=== PATIENT | male | born 1950 | race Caucasian/White ===

== ENCOUNTER 2017-05-09 05:50 | Inpatient (IN) | payer BC ==
[~2017-05-09] VITALS: Ht 167.6 cm; Wt 52.2 kg
[~2017-05-09 05:50] MED LIST: ALBU2.5V14 NEB; ALPR0.5T PO; ALPR0.5T6 PO; ASCO500T2 PO; ASPI325T8 PO; DOCU100C28 PO; HYDR-2766 PO; HYDR-963 PO; LOSA100T6 PO; PRED-220 PO; PRED20TA PO
--- NOTE | 2017-05-09 06:09 | PHYS DOC ---
Past Medical History Past Medical History: COPD, DVT, Hypertension Additional Past Medical Histor: scleraderma, Raynauds Past Surgical History: No Surgical History Additional Past Surgical Histo: CARDIAC CATH 04/2016 Alcohol Use: None Drug Use: None Adult General Chief Complaint Chief Complaint: SKIN PROBLEM HPI HPI Patient is a 67 year old male who presents with worsening left hand pain and redness. He was treated by Dr Phillips outpatient and just finished his antibiotics (Clindamycin) yesterday. He has been having increased pain and swelling and he hasn't been able to sleep because of the hand pain. He feels "sick" and has been very tired. No known fever. No vomiting. Review of Systems Review of Systems Constitutional: Denies fever or chills; POS fatigue Eyes: Denies change in visual acuity, redness, or eye pain HENT: Denies nasal congestion or sore throat Respiratory: Denies cough or shortness of breath Cardiovascular: No chest pain GI: Denies abdominal pain, nausea, vomiting, bloody stools or diarrhea : Denies dysuria or hematuria Musculoskeletal: Denies back pain or joint pain Integument: Left hand with swelling and erythema and warmth over the dorsum. NVI distally. Neurologic: Denies headache, focal weakness or sensory changes All other systems were reviewed and found to be within normal limits, except as documented in this note. Current Medications Current Medications Current Medications Medications (Trade) Dose Ordered Sig/Maximo Start Time Stop Time Status Last Admin Dose Admin Fentanyl Citrate (Fentanyl 2ml Vial) 50 mcg PRN Q4HRS PRN 05/09/17 06:15 05/10/17 06:14 Ondansetron HCl (Zofran) 4 mg PRN Q8HRS PRN 05/09/17 06:15 05/10/17 06:14 Allergies Allergies Allergies Coded Allergies Type Severity Reaction Last Updated Verified Iodinated Contrast- Oral and IV Dye Allergy Intermediate 02/26/17 Yes Physical Exam Physical Exam Constitutional: Well developed, well nourished, no acute distress, non-toxic appearance. HENT: Normocephalic, atraumatic, bilateral external ears normal, oropharynx moist, no oral exudates, nose normal. Eyes: PERRLA, EOMI, conjunctiva normal, no discharge. Neck: Normal range of motion, no tenderness, supple, no stridor. Cardiovascular:Heart rate regular rhythm, no murmur Lungs & Thorax: Bilateral breath sounds clear to auscultation Abdomen: Bowel sounds normal, soft, no tenderness, no masses, no pulsatile masses. Skin: Warm, dry, POS erythema to left hand. Back: No tenderness, no CVA tenderness. Extremities: Left hand: erythema and swelling and warmth to dorsum of left hand. Healing wound on left 5th MCP (denies human bite). NVI distally Neurologic: Alert and oriented X 3, normal motor function, normal sensory function, no focal deficits noted. Psychologic: Affect normal, judgement normal, mood normal. Current Patient Data Vital Signs Vital Signs Date Time Temp Pulse Resp B/P (MAP) Pulse Ox O2 Delivery O2 Flow Rate FiO2 05/09/17 06:00 99.3 88 18 123/68 (86) 98 Room Air 99.3 Lab Values Laboratory Tests Test 05/09/17 06:10 White Blood Count 15.1 x10^3/uL (4.0-11.0) H Red Blood Count 3.88 x10^6/uL (4.30-5.70) L Hemoglobin 11.8 g/dL (13.0-17.5) L Hematocrit 35.7 % (39.0-53.0) L Mean Corpuscular Volume 92 fL (79-100) Mean Corpuscular Hemoglobin 31 pg (25-35) Mean Corpuscular Hemoglobin Concent 33 g/dL (31-37) Red Cell Distribution Width 14.2 % (11.5-14.5) Platelet Count 343 x10^3/uL (140-400) Neutrophils (%) (Auto) 85 % (31-73) H Lymphocytes (%) (Auto) 7 % (24-48) L Monocytes (%) (Auto) 6 % (0-9) Eosinophils (%) (Auto) 1 % (0-3) Basophils (%) (Auto) 1 % (0-3) Neutrophils # (Auto) 12.8 x10^3uL (1.8-7.7) H Lymphocytes # (Auto) 1.1 x10^3/uL (1.0-4.8) Monocytes # (Auto) 0.9 x10^3/uL (0.0-1.1) Eosinophils # (Auto) 0.1 x10^3/uL (0.0-0.7) Basophils # (Auto) 0.1 x10^3/uL (0.0-0.2) Platelet Estimate Pending Sodium Level 131 mmol/L (136-145) L Potassium Level 4.0 mmol/L (3.5-5.1) Chloride Level 95 mmol/L (98-107) L Carbon Dioxide Level 29 mmol/L (21-32) Anion Gap 7 (6-14) Blood Urea Nitrogen 20 mg/dL (8-26) Creatinine 0.9 mg/dL (0.7-1.3) Estimated GFR (Cockcroft-Gault) 83.7 BUN/Creatinine Ratio 22 (6-20) H Glucose Level 92 mg/dL (70-99) Lactic Acid Level 0.9 mmol/L (0.4-2.0) Calcium Level 9.4 mg/dL (8.5-10.1) Total Bilirubin 0.5 mg/dL (0.2-1.0) Aspartate Amino Transferase (AST) 30 U/L (15-37) Alanine Aminotransferase (ALT) 31 U/L (16-63) Alkaline Phosphatase 70 U/L (46-116) C-Reactive Protein, Quantitative 120.1 mg/L (0-3.3) H Total Protein 6.7 g/dL (6.4-8.2) Albumin 3.1 g/dL (3.4-5.0) L Albumin/Globulin Ratio 0.9 (1.0-1.7) L Laboratory Tests 05/09/17 06:10 Laboratory Tests 05/09/17 06:10 Course & Med Decision Making Course & Med Decision Making Evaluated patient. He has failed outpatient management. He has been compliant with his medications. Spoke with Dr Phillips; admit; IV Vancomycin (blood culture obtained). Lactic acid normal. I have spoken with the patient and/or caregivers. I have explained the patient' s condition, diagnosis and treatment plan based on the information available to me at this time. I have answered the patient's and/or caregiver's questions and addressed any concerns. The patient and/or caregivers have as good an understanding of the patient's diagnosis, condition and treatment plan as can be expected at this point. The patient has been stabilized within the capability of the emergency department. The patient will be transported for further care and management or will be moved to an observation or inpatient service. I have communicated with the staff or medical practitioner taking over this patient's care. I have assessed this patient clinically and believe that their condition requires admission to the hospital. After consulting the admitting physician about this case, they have asked that I admit this patient to their service as an inpatient based on the clinical presentation and my impression. Dragon Disclaimer Dragon Disclaimer This electronic medical record was generated, in whole or in part, using a voice recognition dictation system. Departure Departure Impression: Primary Impression: Cellulitis of left hand Additional Impression: Failure of outpatient treatment Disposition: ADMITTED INPATIENT Admitting Physician: Checo Phillips Condition: STABLE Referrals: CHECO PHILLIPS MD (PCP) Problem Qualifiers JOSE ALBERTO LOMBARDI MD May 09, 2017 06:09
[2017-05-09] MEDS ORDERED: ONDANSETRON PF 4 MG/2 ML VIAL. IV PRN (06:15)
[2017-05-09] MEDS ORDERED: fentaNYL PF VIAL 100 MCG/2 ML VIAL IV PRN ×2 (06:15)
[2017-05-09 06:29] LABS: BASO # 0.1 x10^3/uL (0.0-0.2); BASO % 1 % (0-3); EOS % 1 % (0-3); HEMATOCRIT 35.7 % (39.0-53.0); HEMOGLOBIN 11.8 g/dL (13.0-17.5); LYMPH # 1.1 x10^3/uL (1.0-4.8); LYMPH % 7 % (24-48); MEAN CORPUSCULAR HEMOGLOBIN 31 pg (25-35); MEAN CORPUSCULAR HGB CONC 33 g/dL (31-37); MEAN CORPUSCULAR VOLUME 92 fL (79-100); MONO % 6 % (0-9); NEUT % 85 % (31-73); PLATELET COUNT 343 x10^3/uL (140-400); RED BLOOD COUNT 3.88 x10^6/uL (4.30-5.70); RED CELL DISTRIBUTION WIDTH 14.2 % (11.5-14.5); WHITE BLOOD COUNT 15.1 x10^3/uL (4.0-11.0)
[2017-05-09] MEDS ORDERED: ONDANSETRON PF 4 MG/2 ML VIAL. IV ONE (06:30)
[2017-05-09] MEDS ORDERED: IV NORMAL SALINE 1000ML BAG 1,000 ML IV SCH (06:30)
[2017-05-09 06:36] LABS: CALCIUM 9.4 mg/dL (8.5-10.1); CREATININE 0.9 mg/dL (0.7-1.3); GFR 83.7
[2017-05-09 06:42] LABS: ALBUMIN 3.1 g/dL (3.4-5.0); ALBUMIN/GLOBULIN RATIO 0.9 (1.0-1.7); C-REACTIVE PROTEIN 120.1 mg/L (0-3.3); TOTAL BILIRUBIN 0.5 mg/dL (0.2-1.0); TOTAL PROTEIN 6.7 g/dL (6.4-8.2)
[2017-05-09] MEDS: VANCOMYCIN PER PHARMACY MC PRN (06:50)
[2017-05-09 07:00] VITALS: BP 108/67
[2017-05-09] MEDS ORDERED: VANCOMYCIN 1.25 GM in IV DEXTROSE 5% 250 ML IV ONE (07:00)
[2017-05-09] MEDS ORDERED: HYDROcodone/APAP 10/325 1 TAB TABLET PO PRN ×2 (08:30→09:15)
[2017-05-09] MEDS ORDERED: ALBUTEROL SULFATE 2.5 MG/3 ML NEBU. NEB PRN (08:30)
[2017-05-09] MEDS: ASCORBIC ACID 500 MG TABLET PO SCH (09:00)
[2017-05-09] MEDS ORDERED: NON FORMULARY ITEM (Albuterol Sulfate (Albuterol Sulfate Conc Neb Soln) 1 VIAL) NEB SCH (09:00)
[2017-05-09] MEDS ORDERED: ALPRAZolam 0.5 MG TABLET PO SCH (09:00)
[2017-05-09] MEDS ORDERED: ALBUTEROL SULFATE 2.5 MG/3 ML NEBU. NEB SCH (09:00)
[2017-05-09] MEDS: predniSONE 20 MG TABLET PO SCH (09:00)
[2017-05-09] MEDS: LOSARTAN POTASSIUM 50 MG TABLET. PO SCH (09:00)
[2017-05-09] MEDS: DOCUSATE SODIUM 100 MG CAPSULE. PO SCH ×2 (09:00→16:03)
[2017-05-09 10:11] LABS: PLT ESTIMATE ADEQUATE (ADEQUATE)
--- NOTE | 2017-05-09 10:41 | PDOC ---
Provider Note Provider Note [id number] JOHNATHAN CANDELARIA MD May 09, 2017 10:41
--- NOTE | 2017-05-09 10:50 | HP ---
ADMIT DATE: 05/09/2017 CHIEF COMPLAINT: Infected left hand. HISTORY OF PRESENT ILLNESS: A 67-year-old with end-stage chronic obstructive pulmonary disease and chronic pain disorder, was seen in the office about 2 weeks ago with some cellulitis of the left dorsal wrist. This appeared to have stemmed from an open wound on the dorsal aspect of the fifth metacarpophalangeal joint with no sign of secondary abscess or osteomyelitis present. He took a week of clindamycin and initially improved, but apparently pain has returned with diffuse redness and swelling and he was admitted with IV vancomycin and further observation. PAST MEDICAL HISTORY: Well documented in old records. MEDICATIONS: He takes hydrocodone about 60 mg a day for chronic pain. He is on prednisone for end-stage chronic obstructive pulmonary disease. ALLERGIES: No drug allergies. IMMUNIZATION STATUS: Uncertain at this time. SOCIAL HISTORY: Still smoking. Retired. Physically inactive. Nondrinker. FAMILY HISTORY: Unremarkable. REVIEW OF SYSTEMS: No other complaints. OBJECTIVE: ENT: Generally unremarkable. NECK: No carotid bruits, nodes or masses. LUNGS: Decreased breath sounds. No wheezing or tachypnea. CARDIOVASCULAR: Regular rate. No tachycardia or murmur. ABDOMEN: Benign. EXTREMITIES: Left dorsal and ventral hand and ventral wrist are diffusely mildly red and swollen. There is no evidence of abscess. There is a minor open wound over the dorsal aspect of the fifth metacarpophalangeal joint with no expressible pus or discernible discrete bone pain. Neurovascular appears to be intact. NEUROLOGIC: Physiologic and nonfocal. ASSESSMENT: Recurrent cellulitis of the left hand and arm, suspect from soft tissue wound on the dorsal hand. He also has steroid dependent chronic obstructive pulmonary disease and chronic nonmalignant pain disorder. PLAN: Continue vancomycin and add oxycodone for pain support. X-ray of the hand to look for any evidence of osteomyelitis. JOHNATHAN CANDELARIA MD DR: CRISTHIAN/sanjeev JOB#: [id number] / [id number]
[2017-05-09 11:00] VITALS: BP 100/54
[2017-05-09] MEDS: HYDROcodone/APAP 10/325 1 TAB TABLET PO SCH ×3 (11:30→20:27)
[2017-05-09] MEDS: IPRATRPIUM/ALBUTEROL 0.5/2.5MG 3 ML NEBU. NEB SCH ×3 (12:55→20:02)
--- NOTE | 2017-05-09 14:10 | RAD ---
HAND LEFT 2V History:cellulitis, pain in the left hand Comparison: None Findings:2 views of the left hand are submitted. There has been amputation beyond the proximal one third shaft of the fifth middle phalanx, adjacent small corticated bone fragment. No acute fracture or aggressive bone destruction is identified. No radiopaque foreign body is identified. There are ossific bodies about the carpus. Impression: 1.There has been amputation beyond the proximal aspect of the middle fifth phalanx. No aggressive bone destruction is identified. 2. 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
[2017-05-09 15:00] VITALS: BP 108/56
[2017-05-09] MEDS ORDERED: OMEP40CA5 PO (17:12)
[2017-05-09] MEDS: PANTOPRAZOLE 40 MG TABLET.DR. PO SCH (17:20)
[2017-05-09] MEDS: oxyCODONE/APAP 5/325 1 TAB TABLET PO PRN (17:22)
[2017-05-09 19:00] VITALS: BP 117/67
[2017-05-09] MEDS: LACTOBACILLUS RHAMNOSUS GG 1 CAPSULE. PO SCH (20:27)
[2017-05-09] MEDS: ALPRAZolam 0.5 MG TABLET PO PRN (20:27)
[2017-05-09 23:00] VITALS: BP 93/53
[2017-05-10] VITALS (7 sets, daily range): BP systolic 104–150; BP diastolic 51–81
[2017-05-10] MEDS: HYDROcodone/APAP 10/325 1 TAB TABLET PO SCH ×7 (00:59→23:55)
[2017-05-10] MEDS: oxyCODONE/APAP 5/325 1 TAB TABLET PO PRN ×4 (05:43→21:35)
[2017-05-10] MEDS: PANTOPRAZOLE 40 MG TABLET.DR. PO SCH (07:25)
[2017-05-10] MEDS: VANCOMYCIN 750 MG in IV DEXTROSE 5% 250 ML IV SCH (07:25)
[2017-05-10] MEDS: IPRATRPIUM/ALBUTEROL 0.5/2.5MG 3 ML NEBU. NEB SCH ×2 (08:23→13:01)
[2017-05-10] MEDS ORDERED: ALPRAZolam 0.5 MG TABLET PO SCH (09:30)
--- NOTE | 2017-05-10 09:32 | PDOC ---
Provider Note Provider Note afeb, vss- xr neg re osteo- redness of hand less dorsally, wound over dorsal 5th mcp is closed and nt- cont vaco, add tdap JOHNATHAN CANDELARIA MD May 10, 2017 09:32
[2017-05-10] MEDS ORDERED: DIPHTH,PERTUSS(ACELL),TET TOX 0.5 ML DISP.SYRIN. VAX IM ONE (10:00)
[2017-05-10] MEDS: LOSARTAN POTASSIUM 50 MG TABLET. PO SCH (10:40)
[2017-05-10] MEDS: ASCORBIC ACID 500 MG TABLET PO SCH (10:40)
[2017-05-10] MEDS: predniSONE 20 MG TABLET PO SCH (10:41)
[2017-05-10] MEDS: LACTOBACILLUS RHAMNOSUS GG 1 CAPSULE. PO SCH ×2 (10:41→21:07)
[2017-05-10] MEDS: VANCOMYCIN PER PHARMACY MC PRN (13:58)
[2017-05-10] MEDS: ALPRAZolam 0.5 MG TABLET PO PRN (15:28)
[2017-05-11 03:00] VITALS: BP 120/64
[2017-05-11] MEDS: oxyCODONE/APAP 5/325 1 TAB TABLET PO PRN ×3 (03:13→17:41)
[2017-05-11] MEDS: HYDROcodone/APAP 10/325 1 TAB TABLET PO SCH ×5 (04:12→19:56)
[2017-05-11] MEDS: VANCOMYCIN 750 MG in IV DEXTROSE 5% 250 ML IV SCH ×2 (07:06→17:43)
[2017-05-11] MEDS: VANCOMYCIN PER PHARMACY MC PRN (07:19)
[2017-05-11] MEDS: IPRATRPIUM/ALBUTEROL 0.5/2.5MG 3 ML NEBU. NEB SCH ×3 (07:50→21:46)
[2017-05-11] MEDS: DOCUSATE SODIUM 100 MG CAPSULE. PO SCH (08:12)
[2017-05-11] MEDS: predniSONE 20 MG TABLET PO SCH (08:13)
[2017-05-11] MEDS: ASCORBIC ACID 500 MG TABLET PO SCH (08:13)
[2017-05-11] MEDS: PANTOPRAZOLE 40 MG TABLET.DR. PO SCH (08:14)
[2017-05-11] MEDS: LOSARTAN POTASSIUM 50 MG TABLET. PO SCH (08:14)
[2017-05-11] MEDS: LACTOBACILLUS RHAMNOSUS GG 1 CAPSULE. PO SCH ×2 (08:14→19:56)
[2017-05-11 08:37] VITALS: BP 136/77
--- NOTE | 2017-05-11 10:38 | PDOC ---
Provider Note Provider Note L hand less swollen and red, no new sxs, no temp- labs ok, now vanco q 12 re trough level- cont same , maybe po in am JOHNATHAN CANDELARIA MD May 11, 2017 10:38
[2017-05-11 11:24] VITALS: BP 114/69
[2017-05-11 16:00] VITALS: BP 121/66
[2017-05-11 19:00] VITALS: BP 140/75
[2017-05-11] MEDS: ALPRAZolam 0.5 MG TABLET PO PRN (19:22)
[2017-05-11 23:19] VITALS: BP 140/87
[2017-05-12] MEDS: HYDROcodone/APAP 10/325 1 TAB TABLET PO SCH ×3 (00:05→08:11)
[2017-05-12] MEDS: oxyCODONE/APAP 5/325 1 TAB TABLET PO PRN (03:13)
[2017-05-12] MEDS: ALPRAZolam 0.5 MG TABLET PO PRN (03:15)
[2017-05-12] MEDS: PANTOPRAZOLE 40 MG TABLET.DR. PO SCH (03:16)
[2017-05-12 03:24] VITALS: BP 153/83
[2017-05-12 07:00] VITALS: BP 113/77
[2017-05-12] MEDS: IPRATRPIUM/ALBUTEROL 0.5/2.5MG 3 ML NEBU. NEB SCH (07:50)
--- NOTE | 2017-05-12 08:07 | DISCH ---
DISCHARGE INSTRUCTIONS Condition on Discharge Condition on Discharge: Stable Activity After Discharge Activity Instructions for Disc: No restrictions Diet after Discharge Diet after Discharge: Regular Follow-Up Follow up with: dr saldaña 3 days JOHNATHAN CANDELARIA MD May 12, 2017 08:07
[2017-05-12] MEDS: VANCOMYCIN 750 MG in IV DEXTROSE 5% 250 ML IV SCH (08:10)
--- NOTE | 2017-05-12 08:10 | PDOC ---
Provider Note Provider Note [id number] JOHNATHAN CANDELARIA MD May 12, 2017 08:10
[2017-05-12 08:12] VITALS: BP 153/83
[2017-05-12] MEDS: DOCUSATE SODIUM 100 MG CAPSULE. PO SCH (08:12)
[2017-05-12] MEDS: predniSONE 20 MG TABLET PO SCH (08:12)
[2017-05-12] MEDS: LOSARTAN POTASSIUM 50 MG TABLET. PO SCH (08:12)
[2017-05-12] MEDS: LACTOBACILLUS RHAMNOSUS GG 1 CAPSULE. PO SCH (08:14)
[2017-05-12] MEDS: ASCORBIC ACID 500 MG TABLET PO SCH (08:21)
--- NOTE | 2017-05-12 10:41 | DS ---
DATE OF DISCHARGE: 05/12/2017 DISCHARGE INDICATED: 05/12/2017 HOSPITAL SUMMARY: This is a 67-year-old white male who came in with cellulitis of the dorsal left hand. He had finished a week of oral cephalexin, and it improved with cellulitis on his left dorsal wrist, but then the hand became swollen as well. There was a probable port of entry with a concern of fissure over the skin of the dorsal left fifth metacarpophalangeal joint, but x-ray showed no sign of bony involvement, and clinically, there was no concern of osteomyelitis. Chemistry profile and CBC were within normal limits except for white count of 15,100. Vancomycin levels were low on daily dosing, so dose was increased to b.i.d. He had blood cultures which had no growth. He took IV vancomycin throughout the hospital stay to be clinically notably improved. He is afebrile, comfortable after his last dose of vancomycin. He will be followed as an outpatient. FINAL DIAGNOSES: Cellulitis of the left hand. OPERATIONS, PROCEDURES, COMPLICATIONS AND CONSULTATIONS: None. DISPOSITION: He will start Keflex 500 mg 3 times a day and Septra-DS one twice a day with food for 1 more week to cover the possibility of MRSA. Clinical exam was much improved. We will see him in 3 days in followup. Home meds remain the same including his hydrocodone use and no new medications otherwise were given. Tetanus updated with a Tdap immunization. JOHNATHAN CANDELARIA MD DR: CRISTHIAN/sanjeev JOB#: [id number] / [id number]
== END 2017-05-12 10:53 | disposition home or self-care (01) | DRG 603 ==
LOC: ER 05:50 → 4 NORTH 06:28
PROVIDERS: ADMIT Family Medicine; ATTEND Family Medicine
DX: L03.114 Cellulitis of left upper limb (principal); J44.9 Chronic obstructive pulmonary disease, unspecified; F17.200 Nicotine dependence, unspecified, uncomplicated; I10 Essential (primary) hypertension; G89.29 Other chronic pain; Z79.52 Long term (current) use of systemic steroids; Z86.718 Personal history of other venous thrombosis and embolism; Z23 Encounter for immunization
CPT/HCPCS: 36415; 73120; 80053; 80202; 83605; 85007; 85025; 86140; 87040; 90715; 94640; 96365; 96375; J2405; J3010; J3370; J7030; J7512; J7620; 99285-25

== ENCOUNTER 2017-05-29 09:43 | Inpatient (IN) | payer BC ==
[~2017-05-29] VITALS: Ht 170.2 cm; Wt 52.7 kg
[~2017-05-29 09:43] MED LIST changes: +OMEP40CA5 PO
[2017-05-29] MEDS ORDERED: IV NORMAL SALINE 1000ML BAG 1,000 ML IV SCH ×2 (10:27→10:41)
[2017-05-29] MEDS ORDERED: VANCOMYCIN 1GM IVPB FOR OMNI 250 ML IV ONE (10:30)
[2017-05-29] MEDS ORDERED: HYDROmorphone 2 MG/ML VIAL IV/SQ PRN (10:30)
[2017-05-29] MEDS ORDERED: 0.9 % SODIUM CHLORIDE 10 ML DISP.SYRIN. IV PRN (10:30)
--- NOTE | 2017-05-29 10:32 | PHYS DOC ---
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 Patient was seen in our emergency department on 09 May for similar presentation was being treated by his physician Dr. Johnathan Phillips as an outpatient for cellulitis. He had completed a course of clindamycin was still symptomatic and then admitted to the hospital honors May 09 evaluation for failure of outpatient management. Patient is subsequently completed a 5 day hospitalization course of antibiotics and then another week with of symptoms was treated with oral antibiotics at home. Patient has been doing well at about 3 or 4 days ago when he has increased redness localized swelling and increasing pain on the dorsum of the left hand with radiation of pain and swelling to the forearm. He said this is the same location but more rapidly progressive symptoms. He says he has subjective fevers and chills but nothing documented. He 's been taking his daily prednisone for his lung problems which is not changed. He denies any numbness and tingling to his hand, denies any trauma although there is a small lesion noted on the back of dorsum of his hand which is not new. He's been using soaps and alcohol to clean his skin. At this point his is concerned he has having a return of his symptoms and would like to have him omitted in the hospital given his symptoms. Portable rashes and other considerations upon arrival for this redness and swelling in his hand [place] spotted fever, Lyme Disease, Measles, Mumps, rubella, cellulitis, necrotizing fasciitis, toxic shock syndrome, meningococcemia, erythema multiforme, Lalito Alan syndrome, TEN , ITP, TTP, HSP, or disseminated gonorrhea Review of Systems Review of Systems Constitutional: She has had subjective fevers and chills but nothing documented Eyes: Denies change in visual acuity, redness, or eye pain [] HENT: Denies nasal congestion or sore throat [] Respiratory: Patient has chronic cough and chronic shortness of breath. Cardiovascular: No additional information not addressed in HPI [] GI: Denies abdominal pain, nausea, vomiting, bloody stools or diarrhea [] : Denies dysuria or hematuria [] Musculoskeletal: Denies back pain he does complain of increasing hand and wrist pain with swelling and redness of his skin. Integument: Denies rash or skin lesions [] Neurologic: Denies headache, focal weakness or sensory changes [] Endocrine: Denies polyuria or polydipsia [] All other systems were reviewed and found to be within normal limits, except as documented in this note. Current Medications Current Medications Current Medications Medications (Trade) Dose Ordered Sig/Maximo Start Time Stop Time Status Last Admin Dose Admin Acetaminophen (Tylenol) 650 mg PRN Q4HRS PRN 05/29/17 10:45 05/30/17 10:44 Albuterol/ Ipratropium (Duoneb) 3 ml RTQID 05/29/17 12:00 05/30/17 11:59 Ceftriaxone Sodium 50 ml @ 100 mls/hr 1X ONCE 05/29/17 10:30 05/29/17 10:59 DC 05/29/17 10:56 100 MLS/HR Fentanyl Citrate (Fentanyl 2ml Vial) 50 mcg PRN Q1HR PRN 05/29/17 10:45 05/30/17 10:44 Hydromorphone HCl (Dilaudid) 1 mg PRN Q15MIN PRN 05/29/17 10:30 05/30/17 10:29 05/29/17 10:57 1 MG Sodium Chloride 1,000 ml @ 80 mls/hr [id number] 05/29/17 10:41 05/30/17 10:40 Sodium Chloride (Normal Saline Flush) 10 ml QSHIFT PRN 05/29/17 10:30 Vancomycin HCl 250 ml @ 250 mls/hr 1X ONCE 05/29/17 10:30 05/29/17 11:29 Allergies Allergies Allergies Coded Allergies Type Severity Reaction Last Updated Verified Iodinated Contrast- Oral and IV Dye Allergy Intermediate 02/26/17 Yes Physical Exam Physical Exam Vital signs noted on the chart noted to be with tachypnea but not hypoxic heart rate is 65 not hypertensive. Constitutional: He is thin and cachectic in mild respiratory distress chronically no diaphoresis patient is pale[] HENT: Normocephalic, atraumatic, bilateral external ears normal, oropharynx dry mucous membranes no oral exudates, nose normal. [] Eyes: PERRLA, EOMI, conjunctiva normal, no discharge. [] Neck: Normal range of motion, no tenderness, supple, no stridor. [] Cardiovascular:Heart rate regular rhythm, no murmur [] Lungs & Thorax: Patient has quite breath sounds in all lung brock but no retractions, no session mostly is no wheezing. Skin: Warm, dry, significant erythema without rash to the dorsum of the hand involving zones 1-7 as well as some increased swelling on the volar surface of the hand with some warmth no rash no vesicles no petechia Back: No tenderness, no CVA tenderness. [] Extremities: No tenderness, no cyanosis, no clubbing, ROM intact, no edema. [] Neurologic: Alert and oriented X 3, normal motor function, normal sensory function, no focal deficits noted. [] Psychologic: Affect normal, judgement normal, mood normal. [] Current Patient Data Vital Signs Vital Signs Date Time Temp Pulse Resp B/P (MAP) Pulse Ox O2 Delivery O2 Flow Rate FiO2 05/29/17 10:57 16 94 Room Air 05/29/17 10:13 98.4 69 136/65 (88) 98.4 Lab Values Laboratory Tests Test 05/29/17 10:30 White Blood Count 12.4 x10^3/uL (4.0-11.0) H Red Blood Count 3.50 x10^6/uL (4.30-5.70) L Hemoglobin 10.7 g/dL (13.0-17.5) L Hematocrit 32.3 % (39.0-53.0) L Mean Corpuscular Volume 92 fL (79-100) Mean Corpuscular Hemoglobin 30 pg (25-35) Mean Corpuscular Hemoglobin Concent 33 g/dL (31-37) Red Cell Distribution Width 14.9 % (11.5-14.5) H Platelet Count 329 x10^3/uL (140-400) Neutrophils (%) (Auto) 89 % (31-73) H Lymphocytes (%) (Auto) 4 % (24-48) L Monocytes (%) (Auto) 7 % (0-9) Eosinophils (%) (Auto) 1 % (0-3) Basophils (%) (Auto) 0 % (0-3) Neutrophils # (Auto) 11.0 x10^3uL (1.8-7.7) H Lymphocytes # (Auto) 0.5 x10^3/uL (1.0-4.8) L Monocytes # (Auto) 0.8 x10^3/uL (0.0-1.1) Eosinophils # (Auto) 0.1 x10^3/uL (0.0-0.7) Basophils # (Auto) 0.0 x10^3/uL (0.0-0.2) Platelet Estimate Pending Laboratory Tests 05/29/17 10:30 EKG EKG []EKG read by me 10:41 AM demonstrates 05/29/2017 heart rate of 63 which is normal sinus rhythm this is a P-wave every QRS. Intervals 140 which is normal, patient's P wave is marginally to lift left atrial enlargement as likely, QRS width is 82 which is normal, patient's QTc is 421 which is also normal. Patient has significant T wave inversion in the lateral leads which is chronic and not new for patient. This is an abnormal EKG Radiology/Procedures Radiology/Procedures [] Course & Med Decision Making Course & Med Decision Making Pertinent Labs and Imaging studies reviewed. (See chart for details) []he presents with significant tenderness to palpation with soft tissue swelling induration and swelling to the dorsum of the hand which is where he suffered from prior cellulitis.. Patient essentially having recurrence of his symptoms. Because he sits so debilitated on chronic prednisone is likely his elevation of his white count is currently associated with both prednisone usage and possibly infection. Family's expressed interest in having her admitted to the hospital for IV antibiotics. Loan Examiner note: Dr. Phillips Loan Examiner called at of the service service was called at approximately 10:20 AM Consult called back at Dr. Phillips called back at 11 AM Discussed the case I presented and they agreed with admission. Time of acceptance 11 AM "I have assessed this patient clinically and believe that their condition requires an admission to the hospital. After consulting the admitting physician about this case, they have asked that I admit this patient to their service as an inpatient based on the clinical presentation and my impression." white blood cell count is elevated likely secondary to prednisone as well as infection. Given the source of injury patient is oriented x-rays of the hand completed he denies fight bite or prior injury to the hand. We will continue to monitor. Dragon Disclaimer Dragon Disclaimer This electronic medical record was generated, in whole or in part, using a voice recognition dictation system. Departure Departure Impression: Primary Impression: Cellulitis of left hand Additional Impression: Dehydration Disposition: ADMITTED INPATIENT Admitting Physician: Johnathan Phillips Condition: GUARDED Referrals: JOHNATHAN PHILLIPS MD (PCP) Problem Qualifiers KEVYN NEUMANN MD May 29, 2017 10:32
[2017-05-29] MEDS ORDERED: ACETAMINOPHEN 325 MG TABLET. PO PRN (10:45)
[2017-05-29 10:48] LABS: BASO % 0 % (0-3); EOS % 1 % (0-3); HEMATOCRIT 32.3 % (39.0-53.0); HEMOGLOBIN 10.7 g/dL (13.0-17.5); LYMPH # 0.5 x10^3/uL (1.0-4.8); LYMPH % 4 % (24-48); MEAN CORPUSCULAR HEMOGLOBIN 30 pg (25-35); MEAN CORPUSCULAR HGB CONC 33 g/dL (31-37); MEAN CORPUSCULAR VOLUME 92 fL (79-100); MONO % 7 % (0-9); NEUT % 89 % (31-73); PLATELET COUNT 329 x10^3/uL (140-400); RED CELL DISTRIBUTION WIDTH 14.9 % (11.5-14.5); WHITE BLOOD COUNT 12.4 x10^3/uL (4.0-11.0)
[2017-05-29 11:04] LABS: CALCIUM 8.8 mg/dL (8.5-10.1); GFR 74.1; POTASSIUM 3.7 mmol/L (3.5-5.1)
[2017-05-29 11:16] LABS: ALBUMIN 3.5 g/dL (3.4-5.0); DIRECT BILIRUBIN 0.1 mg/dL (0.0-0.2); TOTAL BILIRUBIN 0.3 mg/dL (0.2-1.0); TOTAL PROTEIN 6.2 g/dL (6.4-8.2)
[2017-05-29 11:19] LABS: PLT ESTIMATE ADEQUATE (ADEQUATE)
[2017-05-29 12:00] VITALS: BP 114/61
[2017-05-29] MEDS ORDERED: IPRATRPIUM/ALBUTEROL 0.5/2.5MG 3 ML NEBU. NEB SCH (12:00)
--- NOTE | 2017-05-29 12:43 | EKG ---
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
[2017-05-29] MEDS: fentaNYL PF VIAL 100 MCG/2 ML VIAL IV PRN ×2 (13:05→17:14)
[2017-05-29 15:00] VITALS: BP 123/67
[2017-05-29] MEDS ORDERED: [UNRECOGNIZED DRUG - REMARK] PO (16:04)
[2017-05-29] MEDS ORDERED: HYDR12.58 PO (17:21)
[2017-05-29] MEDS ORDERED: ALBUTEROL SULFATE 2.5 MG/3 ML NEBU. NEB PRN (18:00)
[2017-05-29] MEDS ORDERED: HYDROcodone/APAP 10/325 1 TAB TABLET PO PRN (18:00)
[2017-05-29 19:00] VITALS: BP 108/59
[2017-05-29] MEDS: IPRATRPIUM/ALBUTEROL 0.5/2.5MG 3 ML NEBU. NEB SCH (21:00)
[2017-05-29] MEDS: ALPRAZolam 0.5 MG TABLET PO PRN (21:27)
[2017-05-29] MEDS: HYDROcodone/APAP 10/325 1 TAB TABLET PO SCH (21:27)
[2017-05-29 23:00] VITALS: BP 121/63
[2017-05-30] MEDS: HYDROcodone/APAP 10/325 1 TAB TABLET PO SCH ×7 (01:47→23:42)
[2017-05-30] MEDS: VANCOMYCIN 1 GM in IV 1/2 NORMAL SALINE 250 ML IV SCH ×2 (01:49→11:58)
[2017-05-30 03:00] VITALS: BP 124/74
[2017-05-30 07:00] VITALS: BP 145/77
[2017-05-30] MEDS: PANTOPRAZOLE 40 MG TABLET.DR. PO SCH (07:52)
[2017-05-30] MEDS: IPRATRPIUM/ALBUTEROL 0.5/2.5MG 3 ML NEBU. NEB SCH (08:24)
--- NOTE | 2017-05-30 08:57 | PDOC ---
Provider Note Provider Note [id number] JOHNATHAN CANDELARIA MD May 30, 2017 08:57
--- NOTE | 2017-05-30 09:26 | HP ---
ADMIT DATE: 05/30/2017 CHIEF COMPLAINT: Painful left hand. HISTORY OF PRESENT ILLNESS: A 67-year-old white male who has been off doxycycline and Keflex for about a week now for cellulitis of the left dorsal hand and volar wrist. He was doing well and did some extra yard work and the hand became increasingly red and swollen and painful and he came to the ER. Infection was felt to be etiology and he has received Rocephin and vancomycin. Last admission, he had an x-ray of the hand, which showed no evidence of osteomyelitis and the wound over the dorsal fifth MCP joint that was felt to be the portal of entry has since healed. He recalls no other trauma and no other areas of injury. PAST MEDICAL HISTORY: Well documented in the old records. ALLERGIES: IV CONTRAST DYE. MEDICATIONS: He is on prednisone daily and chronic narcotics for chronic non-malignant pain. SOCIAL HISTORY: Still a smoker, , nondrinker and physically active. FAMILY HISTORY: Unremarkable. PAST SURGICAL HISTORY: He has problems with scleroderma and various issues with that. PHYSICAL EXAMINATION: ENT: Mild proptosis, rest is okay. NECK: No nodes, masses or bruits. LUNGS: Clear. CARDIOVASCULAR: Regular rate. No irregular beat, murmur or tachycardia. ABDOMEN: Soft, benign and nontender. EXTREMITIES: The left dorsal hand is diffusely red and tender, mostly over the distal third metacarpal, but the MCP joints are not particularly tender. There are no overt skin defects or any sign of fluctuance or drainage. The left dorsal wrist is mildly tender and the left lower wrist and forearm are a little tender and red as well. Elbow normal. Wrist range of motion normal and nontender. Extremities show good pedal pulses and 2+ clubbing. NEUROLOGIC: Physiologic and nonfocal. ASSESSMENT: Recurrent cellulitis to the left dorsal hand, etiology and recurrences unclear, other than he is immunosuppressed on prednisone and chronically malnourished from his chronic obstructive pulmonary disease. He has stable scleroderma and chronic non-malignant pain. PLAN: Repeat x-ray of the left hand, though no evidence clinically of osteomyelitis exists. We will also check uric acid and sed rate, though this appears to be more of a soft tissue problem than a joint problem. JOHNATHAN CANDELARIA MD DR: CRISTHIAN/sanjeev JOB#: [id number] / [id number]
[2017-05-30] MEDS: ASCORBIC ACID 500 MG TABLET PO SCH (09:28)
[2017-05-30] MEDS: DOCUSATE SODIUM 100 MG CAPSULE. PO SCH (09:29)
[2017-05-30] MEDS: hydroCHLOROthiazide 12.5 MG CAPSULE PO SCH (09:29)
[2017-05-30] MEDS: predniSONE 20 MG TABLET PO SCH (09:29)
[2017-05-30] MEDS: LOSARTAN POTASSIUM 50 MG TABLET. PO SCH (09:30)
[2017-05-30 11:00] VITALS: BP 118/57
[2017-05-30] MEDS: VANCOMYCIN PER PHARMACY MC PRN ×2 (11:54→16:25)
[2017-05-30 15:00] VITALS: BP 136/57
--- NOTE | 2017-05-30 16:20 | RAD ---
Indication: Pain and swelling. Technique: 2 views of the left hand are submitted for review. Comparison is from May 09, 2017. Findings: There is no fracture or dislocation. Densities along the carpals again are noted and unchanged. Amputation of the fifth digit with amputation beginning at the proximal aspect of the middle phalanx again is demonstrated. Adjacent soft tissue calcification is noted. Impression: Stable examination.
[2017-05-30 19:30] VITALS: BP 134/71
[2017-05-30] MEDS: LACTOBACILLUS RHAMNOSUS GG 1 CAPSULE. PO SCH (19:49)
[2017-05-30 23:30] VITALS: BP 143/67
[2017-05-30] MEDS: ALPRAZolam 0.5 MG TABLET PO PRN (23:42)
[2017-05-31] MEDS: VANCOMYCIN 1 GM in IV 1/2 NORMAL SALINE 250 ML IV SCH (02:55)
[2017-05-31 03:07] VITALS: BP 123/68
[2017-05-31] MEDS: VANCOMYCIN PER PHARMACY MC PRN (03:09)
[2017-05-31] MEDS: HYDROcodone/APAP 10/325 1 TAB TABLET PO SCH ×2 (04:18→07:54)
[2017-05-31] MEDS: PANTOPRAZOLE 40 MG TABLET.DR. PO SCH (05:36)
[2017-05-31 07:00] VITALS: BP 149/87
[2017-05-31] MEDS: ASCORBIC ACID 500 MG TABLET PO SCH (07:52)
[2017-05-31] MEDS: hydroCHLOROthiazide 12.5 MG CAPSULE PO SCH (07:53)
[2017-05-31] MEDS: LACTOBACILLUS RHAMNOSUS GG 1 CAPSULE. PO SCH (07:53)
[2017-05-31] MEDS: DOCUSATE SODIUM 100 MG CAPSULE. PO SCH (07:53)
[2017-05-31] MEDS: predniSONE 20 MG TABLET PO SCH (07:53)
[2017-05-31 07:54] VITALS: BP 149/87
[2017-05-31] MEDS: LOSARTAN POTASSIUM 50 MG TABLET. PO SCH (07:54)
--- NOTE | 2017-05-31 08:26 | DISCH ---
DISCHARGE INSTRUCTIONS Condition on Discharge Condition on Discharge: Stable Activity After Discharge Activity Instructions for Disc: No restrictions Diet after Discharge Diet after Discharge: Regular Follow-Up Follow up with: JOHNATHAN Coley MD May 31, 2017 08:26
--- NOTE | 2017-05-31 08:36 | PDOC ---
Provider Note Provider Note [id number] JOHNATHAN CANDELARIA MD May 31, 2017 08:36
--- NOTE | 2017-05-31 12:00 | DS ---
DATE OF DISCHARGE: 05/31/2017 HOSPITAL SUMMARY: A 67-year-old white male with end-stage COPD with scleroderma, came back in with recurrent cellulitis of the left dorsal hand. Prior wounds of the hand were healed. There was a small open wound on the dorsum of the hand. It could have been the source. Blood cultures had no growth. White count was mildly elevated at 12,400. Sed rate normal at 18. Uric acid normal at 2.4. Rest of chemistry profile unremarkable and vancomycin trough levels were unremarkable as well. X-ray of the left hand showed no sign of any acute injury or osteomyelitis source. He was treated with IV vancomycin and is clinically improved, afebrile and comfortable to be followed as an outpatient. FINAL DIAGNOSES: Recurrent cellulitis of the left dorsal hand. OPERATIONS, PROCEDURES, COMPLICATIONS, AND CONSULTATIONS: None. DISPOSITION: He will take Keflex 500 mg t.i.d. for 1 week as his only medication. Office followup in 5-6 days to assure improvement as this is more likely streptococcal than staphylococcal in origin and he did not tolerate dual therapy with doxycycline last time. He is to use small amounts of Neosporin on open skin wounds t.i.d., but otherwise use simply good hand lotions to prevent cracking and fissuring. His prognosis is guarded as he is on chronic prednisone for COPD. JOHNATHAN CANDELARIA MD DR: CRISTHIAN/sanjeev JOB#: [id number] / [id number]
== END 2017-05-31 09:32 | disposition home or self-care (01) | DRG 603 ==
LOC: ER 09:43 → 4 NORTH 10:44
PROVIDERS: ADMIT Family Medicine; ATTEND Family Medicine
DX: L03.114 Cellulitis of left upper limb (principal); M34.9 Systemic sclerosis, unspecified; J44.9 Chronic obstructive pulmonary disease, unspecified; Z68.1 Body mass index [BMI] 19.9 or less, adult; E86.0 Dehydration; S61.402A Unspecified open wound of left hand, initial encounter; X58.XXXA Exposure to other specified factors, initial encounter; F17.200 Nicotine dependence, unspecified, uncomplicated; Z91.041 Radiographic dye allergy status; Y93.89 Activity, other specified; Y92.89 Other specified places as the place of occurrence of the external cause; Y99.8 Other external cause status; Z79.52 Long term (current) use of systemic steroids
CPT/HCPCS: 36415; 73120; 80048; 80076; 80202; 83605; 84550; 85007; 85025; 85651; 87040; 93005; 94640; 94760; 96365; 96375; J0690; J1170; J3010; J3370; J7030; J7512; J7620; 99285-25

== ENCOUNTER 2017-06-12 08:50 | Inpatient (IN) | payer BC ==
[2017-06-12 09:39] LABS: ADD MAN DIFF? NO
[2017-06-12 09:44] LABS: BASO % 1 % (0-3); EOS % 1 % (0-3); LYMPH % 18 % (24-48); MEAN CORPUSCULAR HEMOGLOBIN 30 pg (25-35); MEAN CORPUSCULAR HGB CONC 33 g/dL (31-37); MEAN CORPUSCULAR VOLUME 90 fL (79-100); MONO # 0.6 x10^3/uL (0.0-1.1); MONO % 11 % (0-9); NEUT # 3.9 x10^3uL (1.8-7.7); NEUT % 70 % (31-73); PLATELET COUNT 307 x10^3/uL (140-400); RED BLOOD COUNT 3.99 x10^6/uL (4.30-5.70); RED CELL DISTRIBUTION WIDTH 15.1 % (11.5-14.5); WHITE BLOOD COUNT 5.5 x10^3/uL (4.0-11.0)
[2017-06-12 10:07] LABS: ANION GAP 8 (6-14); BLOOD UREA NITROGEN 11 mg/dL (8-26); BUN/CREATININE RATIO 16 (6-20); CARBON DIOXIDE 32 mmol/L (21-32); CHLORIDE 95 mmol/L (98-107); CREATININE 0.7 mg/dL (0.7-1.3); GFR 111.8; GLUCOSE 78 mg/dL (70-99); POTASSIUM 4.3 mmol/L (3.5-5.1); SODIUM 135 mmol/L (136-145)
[2017-06-12] MEDS: methylPREDNISolone SOD SUCC PF 125 MG/2 ML VIAL. IV ×3 (10:09→23:10)
[2017-06-12 10:12] LABS: ALBUMIN 3.4 g/dL (3.4-5.0); ALBUMIN/GLOBULIN RATIO 1.1 (1.0-1.7); ALK PHOS 65 U/L (46-116); ALT (SGPT) 31 U/L (16-63); AST (SGOT) 28 U/L (15-37); TOTAL BILIRUBIN 0.5 mg/dL (0.2-1.0); TOTAL PROTEIN 6.5 g/dL (6.4-8.2)
[2017-06-12 10:18] LABS: NT-PRO BNP 461 pg/mL (0-124)
[2017-06-12 10:20] LABS: TROPONINI 0.094 ng/mL (0.000-0.055)
[2017-06-12] MEDS: IPRATROPIUM BROMIDE 0.5 MG/2.5 ML NEBU. NEB (10:29)
[2017-06-12] MEDS: ALBUTEROL SULFATE 2.5 MG/3 ML NEBU. CONT NEB (10:31)
[2017-06-12] MEDS ORDERED: ONDANSETRON PF 4 MG/2 ML VIAL. IV (10:45)
[2017-06-12] MEDS: FUROSEMIDE 20 MG/2 ML VIAL. IVP (11:12)
[2017-06-12] MEDS: HYDROcodone/APAP 10/325 1 TAB TABLET PO ×3 (11:12→19:38)
[2017-06-12] MEDS: IPRATRPIUM/ALBUTEROL 0.5/2.5MG 3 ML NEBU. NEB ×3 (12:00→19:26)
[2017-06-12] MEDS: fentaNYL PF VIAL 100 MCG/2 ML VIAL IV ×3 (13:40→23:21)
[2017-06-12] MEDS: hydroCHLOROthiazide 12.5 MG CAPSULE PO (15:14)
[2017-06-12] MEDS: DOCUSATE SODIUM 100 MG CAPSULE. PO (15:14)
[2017-06-12] MEDS: PANTOPRAZOLE 40 MG TABLET.DR. PO (15:14)
[2017-06-12] MEDS: ASCORBIC ACID 500 MG TABLET PO (15:14)
[2017-06-12] MEDS: LOSARTAN POTASSIUM 50 MG TABLET. PO (15:16)
[2017-06-12 15:41] LABS: BASE EXCESS ABG 4 mmol/L (-3-3); HCO3 ABG 27 mmol/L (21-28); PCO2 ABG 38 mmHg (35-46); PH ABG 7.48 (7.35-7.45); PO2 ABG 75 mmHg (65-108); SAT O2 ABG 95 % (92-99)
[2017-06-12 15:43] LABS: FIO2 ABG 21
[2017-06-12 16:54] LABS: TROPONINI 0.093 ng/mL (0.000-0.055)
[2017-06-12] MEDS: ALPRAZolam 0.5 MG TABLET PO (18:18)
[2017-06-12 22:37] LABS: TROPONINI 0.062 ng/mL (0.000-0.055)
[2017-06-13] MEDS: ALPRAZolam 0.5 MG TABLET PO ×3 (00:31→18:54)
[2017-06-13] MEDS: HYDROcodone/APAP 10/325 1 TAB TABLET PO ×6 (00:32→20:48)
[2017-06-13] MEDS: fentaNYL PF VIAL 100 MCG/2 ML VIAL IV (06:09)
[2017-06-13] MEDS: methylPREDNISolone SOD SUCC PF 125 MG/2 ML VIAL. IV ×2 (06:10→18:07)
[2017-06-13] MEDS: IPRATRPIUM/ALBUTEROL 0.5/2.5MG 3 ML NEBU. NEB ×4 (07:36→19:43)
[2017-06-13] MEDS: PANTOPRAZOLE 40 MG TABLET.DR. PO (08:45)
[2017-06-13] MEDS: ASCORBIC ACID 500 MG TABLET PO (08:45)
[2017-06-13] MEDS: DOCUSATE SODIUM 100 MG CAPSULE. PO (08:46)
[2017-06-13] MEDS: hydroCHLOROthiazide 12.5 MG CAPSULE PO (08:47)
[2017-06-13] MEDS: LOSARTAN POTASSIUM 50 MG TABLET. PO (08:50)
[2017-06-13] MEDS: LACTOBACILLUS RHAMNOSUS GG 1 CAPSULE. PO (20:49)
[2017-06-14] MEDS: HYDROcodone/APAP 10/325 1 TAB TABLET PO ×6 (00:48→21:33)
[2017-06-14] MEDS: ALPRAZolam 0.5 MG TABLET PO ×4 (00:48→21:34)
[2017-06-14] MEDS: methylPREDNISolone SOD SUCC PF 125 MG/2 ML VIAL. IV (05:07)
[2017-06-14] MEDS: IPRATRPIUM/ALBUTEROL 0.5/2.5MG 3 ML NEBU. NEB ×4 (06:58→19:15)
[2017-06-14] MEDS: DOCUSATE SODIUM 100 MG CAPSULE. PO (07:57)
[2017-06-14] MEDS: PANTOPRAZOLE 40 MG TABLET.DR. PO (07:57)
[2017-06-14] MEDS: ASCORBIC ACID 500 MG TABLET PO (07:57)
[2017-06-14] MEDS: hydroCHLOROthiazide 12.5 MG CAPSULE PO (07:57)
[2017-06-14] MEDS: LACTOBACILLUS RHAMNOSUS GG 1 CAPSULE. PO ×2 (07:58→21:32)
[2017-06-14] MEDS: LOSARTAN POTASSIUM 50 MG TABLET. PO (07:58)
[2017-06-14] MEDS ORDERED: ZOLEDRONICACID 5mg/100mlPREMIX 100 ML IV (09:00)
[2017-06-14] MEDS: CHOLECALCIFEROL (VITAMIN D3) 1,000 UNIT TABLET PO (09:07)
[2017-06-14] MEDS: CALCITONIN,SALMON NASAL 200 UNITS/SPRAY 3.7ML BOTTLE. NS (09:50)
[2017-06-14] MEDS: methylPREDNISolone SOD SUCC PF 40 MG/ML VIAL. IV (17:14)
[2017-06-15] MEDS: HYDROcodone/APAP 10/325 1 TAB TABLET PO ×6 (01:44→22:36)
[2017-06-15] MEDS: methylPREDNISolone SOD SUCC PF 40 MG/ML VIAL. IV (05:41)
[2017-06-15] MEDS: IPRATRPIUM/ALBUTEROL 0.5/2.5MG 3 ML NEBU. NEB ×4 (07:34→20:00)
[2017-06-15] MEDS: PANTOPRAZOLE 40 MG TABLET.DR. PO (08:09)
[2017-06-15] MEDS: CHOLECALCIFEROL (VITAMIN D3) 1,000 UNIT TABLET PO (08:45)
[2017-06-15] MEDS: LOSARTAN POTASSIUM 50 MG TABLET. PO (08:45)
[2017-06-15] MEDS: hydroCHLOROthiazide 12.5 MG CAPSULE PO (08:45)
[2017-06-15] MEDS: DOCUSATE SODIUM 100 MG CAPSULE. PO (08:45)
[2017-06-15] MEDS: LACTOBACILLUS RHAMNOSUS GG 1 CAPSULE. PO ×2 (08:45→21:48)
[2017-06-15] MEDS: ASCORBIC ACID 500 MG TABLET PO (08:46)
[2017-06-15] MEDS: CALCITONIN,SALMON NASAL 200 UNITS/SPRAY 3.7ML BOTTLE. NS (08:46)
[2017-06-15] MEDS: ALPRAZolam 0.5 MG TABLET PO ×2 (12:08→18:34)
[2017-06-16] MEDS: ALPRAZolam 0.5 MG TABLET PO ×4 (02:36→18:31)
[2017-06-16] MEDS: HYDROcodone/APAP 10/325 1 TAB TABLET PO ×6 (02:38→23:13)
[2017-06-16] MEDS: IPRATRPIUM/ALBUTEROL 0.5/2.5MG 3 ML NEBU. NEB ×4 (07:19→20:23)
[2017-06-16] MEDS: PANTOPRAZOLE 40 MG TABLET.DR. PO (07:50)
[2017-06-16] MEDS: DOCUSATE SODIUM 100 MG CAPSULE. PO (09:07)
[2017-06-16] MEDS: predniSONE 20 MG TABLET PO (09:07)
[2017-06-16] MEDS: LOSARTAN POTASSIUM 50 MG TABLET. PO (09:07)
[2017-06-16] MEDS: CALCITONIN,SALMON NASAL 200 UNITS/SPRAY 3.7ML BOTTLE. NS (09:07)
[2017-06-16] MEDS: LACTOBACILLUS RHAMNOSUS GG 1 CAPSULE. PO ×2 (09:07→21:12)
[2017-06-16] MEDS: ASCORBIC ACID 500 MG TABLET PO (09:08)
[2017-06-16] MEDS: CHOLECALCIFEROL (VITAMIN D3) 1,000 UNIT TABLET PO (09:08)
[2017-06-16] MEDS: hydroCHLOROthiazide 12.5 MG CAPSULE PO (09:08)
[2017-06-16] MEDS: MORPHINE SULFATE 20 MG/ML CONC SOLUTION. SL ×7 (10:56→23:13)
[2017-06-17] MEDS: MORPHINE SULFATE 20 MG/ML CONC SOLUTION. SL ×7 (03:13→21:31)
[2017-06-17] MEDS: HYDROcodone/APAP 10/325 1 TAB TABLET PO ×5 (03:14→19:46)
[2017-06-17] MEDS: ALPRAZolam 0.5 MG TABLET PO ×3 (03:19→19:46)
[2017-06-17] MEDS: IPRATRPIUM/ALBUTEROL 0.5/2.5MG 3 ML NEBU. NEB ×4 (07:50→19:31)
[2017-06-17] MEDS: PANTOPRAZOLE 40 MG TABLET.DR. PO (08:04)
[2017-06-17] MEDS: CALCITONIN,SALMON NASAL 200 UNITS/SPRAY 3.7ML BOTTLE. NS (08:04)
[2017-06-17] MEDS: LACTOBACILLUS RHAMNOSUS GG 1 CAPSULE. PO ×2 (08:05→21:19)
[2017-06-17] MEDS: hydroCHLOROthiazide 12.5 MG CAPSULE PO (08:05)
[2017-06-17] MEDS: predniSONE 20 MG TABLET PO (08:05)
[2017-06-17] MEDS: CHOLECALCIFEROL (VITAMIN D3) 1,000 UNIT TABLET PO (08:05)
[2017-06-17] MEDS: ASCORBIC ACID 500 MG TABLET PO (08:05)
[2017-06-17] MEDS: DOCUSATE SODIUM 100 MG CAPSULE. PO (08:05)
[2017-06-17] MEDS: LOSARTAN POTASSIUM 50 MG TABLET. PO (08:07)
[2017-06-17] MEDS: POLYETHYLENE GLYCOL 3350 17 GM PACKET. PO (11:28)
[2017-06-18] MEDS: HYDROcodone/APAP 10/325 1 TAB TABLET PO ×6 (00:28→20:36)
[2017-06-18] MEDS: MORPHINE SULFATE 20 MG/ML CONC SOLUTION. SL ×6 (02:33→20:37)
[2017-06-18] MEDS: IPRATRPIUM/ALBUTEROL 0.5/2.5MG 3 ML NEBU. NEB ×4 (07:36→19:49)
[2017-06-18] MEDS: PANTOPRAZOLE 40 MG TABLET.DR. PO (08:30)
[2017-06-18] MEDS: ALPRAZolam 0.5 MG TABLET PO ×2 (08:30→18:11)
[2017-06-18] MEDS: LACTOBACILLUS RHAMNOSUS GG 1 CAPSULE. PO ×2 (08:30→20:36)
[2017-06-18] MEDS ORDERED: LOSARTAN POTASSIUM 50 MG TABLET. PO (09:00)
[2017-06-18] MEDS: POLYETHYLENE GLYCOL 3350 17 GM PACKET. PO (09:00)
[2017-06-18] MEDS: CALCITONIN,SALMON NASAL 200 UNITS/SPRAY 3.7ML BOTTLE. NS (09:26)
[2017-06-18] MEDS: CHOLECALCIFEROL (VITAMIN D3) 1,000 UNIT TABLET PO (09:26)
[2017-06-18] MEDS: DOCUSATE SODIUM 100 MG CAPSULE. PO (09:27)
[2017-06-18] MEDS: hydroCHLOROthiazide 12.5 MG CAPSULE PO (09:28)
[2017-06-18] MEDS: predniSONE 10 MG TABLET PO (11:10)
[2017-06-19] MEDS: MORPHINE SULFATE 20 MG/ML CONC SOLUTION. SL ×2 (00:39→03:41)
[2017-06-19] MEDS: HYDROcodone/APAP 10/325 1 TAB TABLET PO ×2 (00:39→05:39)
[2017-06-19] MEDS: ALPRAZolam 0.5 MG TABLET PO ×2 (00:39→08:57)
[2017-06-19] MEDS: IPRATRPIUM/ALBUTEROL 0.5/2.5MG 3 ML NEBU. NEB (07:36)
[2017-06-19] MEDS: hydroCHLOROthiazide 12.5 MG CAPSULE PO (08:57)
[2017-06-19] MEDS: CHOLECALCIFEROL (VITAMIN D3) 1,000 UNIT TABLET PO (08:57)
[2017-06-19] MEDS: DOCUSATE SODIUM 100 MG CAPSULE. PO (08:57)
[2017-06-19] MEDS: LACTOBACILLUS RHAMNOSUS GG 1 CAPSULE. PO (08:57)
[2017-06-19] MEDS: predniSONE 10 MG TABLET PO (08:57)
[2017-06-19] MEDS: PANTOPRAZOLE 40 MG TABLET.DR. PO (08:58)
== END 2017-06-19 11:00 | disposition home or self-care (01) | DRG 177 ==
LOC: ER 08:50 → 5 SOUTH 09:20
DX: J15.6 Pneumonia due to other Gram-negative bacteria (principal); J96.20 Acute and chronic respiratory failure, unspecified whether with hypoxia or hypercapnia; E43 Unspecified severe protein-calorie malnutrition; I11.0 Hypertensive heart disease with heart failure; I50.9 Heart failure, unspecified; M34.9 Systemic sclerosis, unspecified; Z99.81 Dependence on supplemental oxygen; J44.1 Chronic obstructive pulmonary disease with (acute) exacerbation; J44.0 Chronic obstructive pulmonary disease with (acute) lower respiratory infection; M80.88XA Other osteoporosis with current pathological fracture, vertebra(e), initial encounter for fracture; Z68.1 Body mass index [BMI] 19.9 or less, adult; F17.210 Nicotine dependence, cigarettes, uncomplicated; J20.9 Acute bronchitis, unspecified; T38.0X5A Adverse effect of glucocorticoids and synthetic analogues, initial encounter; I73.00 Raynaud's syndrome without gangrene; Z86.718 Personal history of other venous thrombosis and embolism; Z79.52 Long term (current) use of systemic steroids; Z79.1 Long term (current) use of non-steroidal anti-inflammatories (NSAID); Z91.041 Radiographic dye allergy status; Z89.022 Acquired absence of left finger(s)
CPT/HCPCS: 36415; 36600; 71010; 71250; 80053; 82805; 83880; 84484; 85025; 93005; 94618; 94640; 94644; 94760; 96374; 96375; 97116-GP; 97161-GP; 99285; 99285-25; J0630; J1956; J2920; J2930; J3010; J7512; J7613; J7620; J7644

== ENCOUNTER 2018-04-10 20:30 | Inpatient (IN) | payer BC ==
[~2018-04-10] VITALS: Ht 167.6 cm; Wt 37.8 kg
[~2018-04-10 20:30] MED LIST changes: +HYDR12.58 PO; -LOSA100T6 PO; +LOSA100T7 PO; +[UNRECOGNIZED DRUG - REMARK] PO
[2018-04-10 21:12] LABS: BASO # 0.1 x10^3/uL (0.0-0.2); BASO % 1 % (0-3); EOS # 0.2 x10^3/uL (0.0-0.7); EOS % 2 % (0-3); HEMOGLOBIN 12.7 g/dL (13.0-17.5); LYMPH # 1.1 x10^3/uL (1.0-4.8); LYMPH % 13 % (24-48); MEAN CORPUSCULAR HEMOGLOBIN 32 pg (25-35); MEAN CORPUSCULAR HGB CONC 34 g/dL (31-37); MEAN CORPUSCULAR VOLUME 94 fL (79-100); MONO # 0.7 x10^3/uL (0.0-1.1); MONO % 8 % (0-9); NEUT # 6.3 x10^3uL (1.8-7.7); NEUT % 76 % (31-73); PLATELET COUNT 331 x10^3/uL (140-400); RED BLOOD COUNT 3.95 x10^6/uL (4.30-5.70); RED CELL DISTRIBUTION WIDTH 15.5 % (11.5-14.5); WHITE BLOOD COUNT 8.3 x10^3/uL (4.0-11.0)
[2018-04-10 21:24] LABS: CALCIUM 9.6 mg/dL (8.5-10.1); CREATININE 1.2 mg/dL (0.7-1.3); GFR 59.9; POTASSIUM 3.5 mmol/L (3.5-5.1)
[2018-04-10 21:30] LABS: ALBUMIN 3.4 g/dL (3.4-5.0); DIRECT BILIRUBIN 0.1 mg/dL (0.0-0.2); TOTAL BILIRUBIN 0.3 mg/dL (0.2-1.0)
[2018-04-10] MEDS ORDERED: IV NORMAL SALINE 500ML BAG 500 ML IV ONE ×2 (21:30→22:00)
[2018-04-10] MEDS ORDERED: IPRATRPIUM/ALBUTEROL 0.5/2.5MG 3 ML NEBU. NEB ONE (21:30)
--- NOTE | 2018-04-10 21:46 | PHYS DOC ---
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 Patient is known to have a history of COPD. He also has a poor social situation. He is currently living in a hotel. He does not have access to needed oxygen or medications. He reports to the emergency department complaining of shortness of breath and generalized weakness over the last 2 days. He does endorse worsening cough as well. He denies chest pain. The patient is emaciated and cachectic. He denies a known history of cancer. No fever or chills. Denies orthopnea or lower extremity edema. Primarily c/o profound generalized weakness. Review of Systems Review of Systems Constitutional: Denies fever or chills Eyes: Denies change in visual acuity HENT: Denies nasal congestion Respiratory: + cough and dyspnea Cardiovascular: No additional information not addressed in HPI GI: Denies abdominal pain : Denies Musculoskeletal: Denies back pain Integument: Denies rash Neurologic: Denies headache, or focal weakness All other systems were reviewed and found to be within normal limits, except as documented in this note. Current Medications Current Medications Current Medications Medications (Trade) Dose Ordered Sig/Maximo Start Time Stop Time Status Last Admin Dose Admin Acetaminophen (Tylenol) 650 mg PRN Q4HRS PRN 04/10/18 22:15 04/11/18 22:14 Albuterol/ Ipratropium (Duoneb) 3 ml 1X ONCE 04/10/18 21:30 04/10/18 21:31 DC 04/10/18 21:27 3 ML Fentanyl Citrate (Fentanyl 2ml Vial) 50 mcg PRN Q1HR PRN 04/10/18 22:15 04/11/18 22:14 Levofloxacin/ Dextrose 100 ml @ 100 mls/hr 1X ONCE 04/10/18 22:30 04/10/18 23:29 Ondansetron HCl (Zofran) 4 mg PRN Q8HRS PRN 04/10/18 22:15 04/11/18 22:14 Sodium Chloride 1,000 ml @ 65 mls/hr [id number] 04/10/18 22:30 04/11/18 22:29 Allergies Allergies Allergies Coded Allergies Type Severity Reaction Last Updated Verified Iodinated Contrast- Oral and IV Dye Allergy Intermediate 06/25/17 Yes Physical Exam Physical Exam Constitutional: chronically ill-appearing male, cachectic, pale HENT: Normocephalic, atraumatic, bilateral external ears normal, oropharynx dry Eyes: PERRLA, EOMI Neck: Normal range of motion, no tenderness Cardiovascular:Heart rate regular rhythm, no murmur Lungs & Thorax: diminished bilaterally but no acute respiratory distress Abdomen: flat, emaciated, soft, NTTP Skin: Warm, dry, no erythema, pale Extremities: No tenderness, no edema Neurologic: Alert and oriented X 3 Psychologic: Affect normal Current Patient Data Vital Signs Vital Signs Date Time Temp Pulse Resp B/P (MAP) Pulse Ox O2 Delivery O2 Flow Rate FiO2 04/10/18 21:27 Nasal Cannula 3.0 04/10/18 20:30 98.6 90 18 95/68 (77) 96 98.6 Lab Values Laboratory Tests Test 04/10/18 20:50 White Blood Count 8.3 x10^3/uL (4.0-11.0) Red Blood Count 3.95 x10^6/uL (4.30-5.70) L Hemoglobin 12.7 g/dL (13.0-17.5) L Hematocrit 37.0 % (39.0-53.0) L Mean Corpuscular Volume 94 fL (79-100) Mean Corpuscular Hemoglobin 32 pg (25-35) Mean Corpuscular Hemoglobin Concent 34 g/dL (31-37) Red Cell Distribution Width 15.5 % (11.5-14.5) H Platelet Count 331 x10^3/uL (140-400) Neutrophils (%) (Auto) 76 % (31-73) H Lymphocytes (%) (Auto) 13 % (24-48) L Monocytes (%) (Auto) 8 % (0-9) Eosinophils (%) (Auto) 2 % (0-3) Basophils (%) (Auto) 1 % (0-3) Neutrophils # (Auto) 6.3 x10^3uL (1.8-7.7) Lymphocytes # (Auto) 1.1 x10^3/uL (1.0-4.8) Monocytes # (Auto) 0.7 x10^3/uL (0.0-1.1) Eosinophils # (Auto) 0.2 x10^3/uL (0.0-0.7) Basophils # (Auto) 0.1 x10^3/uL (0.0-0.2) Sodium Level 136 mmol/L (136-145) Potassium Level 3.5 mmol/L (3.5-5.1) Chloride Level 101 mmol/L (98-107) Carbon Dioxide Level 33 mmol/L (21-32) H Anion Gap 2 (6-14) L Blood Urea Nitrogen 23 mg/dL (8-26) Creatinine 1.2 mg/dL (0.7-1.3) Estimated GFR (Cockcroft-Gault) 59.9 Glucose Level 112 mg/dL (70-99) H Lactic Acid Level 1.4 mmol/L (0.4-2.0) Calcium Level 9.6 mg/dL (8.5-10.1) Total Bilirubin 0.3 mg/dL (0.2-1.0) Direct Bilirubin 0.1 mg/dL (0.0-0.2) Aspartate Amino Transferase (AST) 23 U/L (15-37) Alanine Aminotransferase (ALT) 37 U/L (16-63) Alkaline Phosphatase 50 U/L (46-116) Troponin I Quantitative 0.059 ng/mL (0.000-0.055) Total Protein 6.0 g/dL (6.4-8.2) L Albumin 3.4 g/dL (3.4-5.0) Lipase 1162 U/L (73-393) H Procalcitonin 0.12 ng/mL (0.00-0.10) H Laboratory Tests 04/10/18 20:50 Laboratory Tests 04/10/18 20:50 EKG EKG No STEMI Interpretation Time: 20:45 Radiology/Procedures Radiology/Procedures COPD, Consolidation right LL? Course & Med Decision Making Course & Med Decision Making Pertinent Labs and Imaging studies reviewed. (See chart for details) Patient is evaluated in the emergency department for 2 days of weakness that seems profound. Patient has a poor social situation and is currently living in hotel without his oxygen or any medications. He did not have chest pain. In the ER, he was noted to have elevated troponin. Review of electronic medical record reveals that he has chronic troponin elevation. His EKG was negative for STEMI. He had diminished lung sounds bilaterally on arrival. He was given albuterol nebulized treatment which did improve his air movement. He did continue to have some wheezes. But no respiratory distress. Patient was hypotensive on arrival with blood pressure in the upper 80s and low 90s systolic. This did improve after a 1 L bolus of normal saline. Patient will be admitted to the hospital for elevated troponin. Also some suspicion for pneumonia on chest x-ray. His pro calcitonin is elevated but his white blood cell count is normal range. Dragon Disclaimer Dragon Disclaimer This electronic medical record was generated, in whole or in part, using a voice recognition dictation system. Departure Departure Referrals: JOHNATHAN CANDELARIA MD (PCP) FUENTES TATUM DO Apr 10, 2018 21:45
[2018-04-10] MEDS ORDERED: ACETAMINOPHEN 325 MG TABLET. PO PRN (22:15)
[2018-04-10] MEDS ORDERED: ONDANSETRON PF 4 MG/2 ML VIAL. IV PRN (22:15)
[2018-04-10] MEDS ORDERED: IV NORMAL SALINE 1000ML BAG 1,000 ML IV SCH (22:30)
[2018-04-10] MEDS: fentaNYL PF VIAL 100 MCG/2 ML VIAL IV PRN (23:13)
[2018-04-10 23:22] VITALS: BP 114/67
--- NOTE | 2018-04-10 23:44 | RAD ---
Indication:Dyspnea, COPD TECHNIQUE:Portable AP chest X-ray COMPARISON:06/25/2017 FINDINGS: Heart is normal in size. Lungs are hyperinflated but clear of focal consolidation. 1.1 cm nodular opacity is seen in the left upper lobe. No pneumothorax or pleural effusion. Visualized bony thorax within normal limits. IMPRESSION: Findings of COPD. Small nodular opacity in the left upper lobe may represent a calcified granuloma or pulmonary nodule. Nonemergent CT chest without IV contrast recommended. Electronically signed by: Juan Miguel Lemon DO (04/10/2018 11:41 PM) [facility]
[2018-04-11] MEDS: fentaNYL PF VIAL 100 MCG/2 ML VIAL IV PRN ×3 (00:23→07:24)
[2018-04-11 03:09] VITALS: BP 98/65
[2018-04-11 07:00] VITALS: BP 113/67
--- NOTE | 2018-04-11 07:18 | EKG ---
[facility] [address] [place] [address] Test Date: 2018-04-10 Test Time: 20:44:07 Pat Name: MANOLO PARKER Department: Room: 264 1 Gender: M Drama Teacher: : 1950 Requested By: FUENTES TATUM Order Number: [id number] Reading MD: Morgan Jones MD Measurements Intervals [place] Rate: 106 P: 37 DE: 136 QRS: 85 QRSD: 100 T: -99 QT: 340 QTc: 453 Interpretive Statements SINUS TACHYCARDIA PAC'S LVH CANNOT RULE OUT ANTEROLATERAL INJURY/ISCHEMIA Electronically Signed On 04-14-2018 11:06:56 CDT by Morgan Jones MD
[2018-04-11] MEDS: IPRATRPIUM/ALBUTEROL 0.5/2.5MG 3 ML NEBU. NEB SCH ×4 (07:45→19:24)
--- NOTE | 2018-04-11 09:12 | PDOC2 ---
CARDIAC CONSULT DATE OF CONSULT Date of Consult DATE: 04/11/18 TIME: 09:01 CURRENT MEDICATIONS CURRENT MEDICATIONS Current Medications Medications (Trade) Dose Ordered Sig/Maximo Route PRN Reason Start Time Stop Time Status Last Admin Dose Admin Sodium Chloride 500 ml @ 500 mls/hr 1X ONCE IV 04/10/18 21:30 04/10/18 22:29 DC 04/10/18 21:06 Albuterol/ Ipratropium (Duoneb) 3 ml 1X ONCE NEB 04/10/18 21:30 04/10/18 21:31 DC 04/10/18 21:27 Sodium Chloride 500 ml @ 500 mls/hr 1X ONCE IV 04/10/18 22:00 04/10/18 22:59 DC 04/10/18 21:53 Fentanyl Citrate (Fentanyl 2ml Vial) 50 mcg PRN Q1HR PRN IV SEVERE PAIN 04/10/18 22:15 04/11/18 22:14 04/11/18 07:24 Sodium Chloride 1,000 ml @ 65 mls/hr [id number] IV 04/10/18 22:30 04/11/18 22:29 04/10/18 22:34 Acetaminophen (Tylenol) 650 mg PRN Q4HRS PRN PO FEVER 04/10/18 22:15 04/11/18 22:14 04/11/18 00:23 Levofloxacin/ Dextrose 100 ml @ 100 mls/hr 1X ONCE IV 04/10/18 22:30 04/10/18 23:29 DC 04/10/18 22:34 Albuterol/ Ipratropium (Duoneb) 3 ml RTQID NEB 04/11/18 08:00 04/12/18 07:59 04/11/18 07:45 ALLERGIES ALLERGIES: Coded Allergies: Iodinated Contrast- Oral and IV Dye (Verified Allergy, Intermediate, ) VITALS VITALS Vital Signs Date Time Temp Pulse Resp B/P (MAP) Pulse Ox O2 Delivery O2 Flow Rate FiO2 04/11/18 07:54 18 Room Air 04/11/18 07:48 99 3.0 04/11/18 07:00 98.0 67 113/67 (82) 98.0 LABS Lab: Laboratory Tests Test 04/10/18 20:50 White Blood Count 8.3 x10^3/uL (4.0-11.0) Red Blood Count 3.95 x10^6/uL (4.30-5.70) Hemoglobin 12.7 g/dL (13.0-17.5) Hematocrit 37.0 % (39.0-53.0) Mean Corpuscular Volume 94 fL (79-100) Mean Corpuscular Hemoglobin 32 pg (25-35) Mean Corpuscular Hemoglobin Concent 34 g/dL (31-37) Red Cell Distribution Width 15.5 % (11.5-14.5) Platelet Count 331 x10^3/uL (140-400) Neutrophils (%) (Auto) 76 % (31-73) Lymphocytes (%) (Auto) 13 % (24-48) Monocytes (%) (Auto) 8 % (0-9) Eosinophils (%) (Auto) 2 % (0-3) Basophils (%) (Auto) 1 % (0-3) Neutrophils # (Auto) 6.3 x10^3uL (1.8-7.7) Lymphocytes # (Auto) 1.1 x10^3/uL (1.0-4.8) Monocytes # (Auto) 0.7 x10^3/uL (0.0-1.1) Eosinophils # (Auto) 0.2 x10^3/uL (0.0-0.7) Basophils # (Auto) 0.1 x10^3/uL (0.0-0.2) Sodium Level 136 mmol/L (136-145) Potassium Level 3.5 mmol/L (3.5-5.1) Chloride Level 101 mmol/L (98-107) Carbon Dioxide Level 33 mmol/L (21-32) Anion Gap 2 (6-14) Blood Urea Nitrogen 23 mg/dL (8-26) Creatinine 1.2 mg/dL (0.7-1.3) Estimated GFR (Cockcroft-Gault) 59.9 Glucose Level 112 mg/dL (70-99) Lactic Acid Level 1.4 mmol/L (0.4-2.0) Calcium Level 9.6 mg/dL (8.5-10.1) Total Bilirubin 0.3 mg/dL (0.2-1.0) Direct Bilirubin 0.1 mg/dL (0.0-0.2) Aspartate Amino Transf (AST/SGOT) 23 U/L (15-37) Alanine Aminotransferase (ALT/SGPT) 37 U/L (16-63) Alkaline Phosphatase 50 U/L (46-116) Troponin I Quantitative 0.059 ng/mL (0.000-0.055) Total Protein 6.0 g/dL (6.4-8.2) Albumin 3.4 g/dL (3.4-5.0) Lipase 1162 U/L (73-393) Procalcitonin 0.12 ng/mL (0.00-0.10) ECHOCARDIOGRAM ECHOCARDIOGRAM <Conclusion> The left ventricle is normal size. The left ventricular systolic function is normal and the ejection fraction is within normal range. Left ventricular ejection fraction is 60-65%. There is moderate concentric left ventricular hypertrophy. There is no significant aortic valvular stenosis. Doppler and Color Flow revealed no significant aortic regurgitation. Doppler and Color Flow revealed mild mitral regurgitation. Doppler and Color Flow revealed mild to moderate tricuspid regurgitation. The PA pressure was estimated at 38 mmHg. DATE: 04/27/16 1359 HEART CATH HEART CATH FINDINGS 1. Hemodynamics: Left ventricular end-diastolic pressure of 19 mmHg. No pullback gradient across the aortic valve. 2. Left ventriculography: Hyperdynamic left ventricular systolic function with ejection fraction estimated at 80%. No significant mitral regurgitation seen. 3. Coronary angiography: a. The left main coronary artery arose from the left sinus of Valsalva, gave rise to the left anterior descending and left circumflex arteries and did not show any significant stenosis. b. The left anterior descending artery did not show any significant stenosis. c. The left circumflex artery did not show any significant stenosis. d. The right coronary artery was a large and dominant vessel arising from the right sinus of Valsalva that did not show any significant stenosis. Conclusion 1. No significant coronary artery disease 2. Hyperdynamic left ventricular systolic function with ejection fraction estimated at 80%. Recommendations Medical Therapy DATE: 04/27/16 1244 ZEINA DELGADO APRN Apr 11, 2018 09:12
--- NOTE | 2018-04-11 09:17 | PDOC ---
Provider Note Provider Note [id number] JOHNATHAN CANDELARIA MD Apr 11, 2018 09:17
--- NOTE | 2018-04-11 09:44 | HP ---
ADMIT DATE: 04/11/2018 CHIEF COMPLAINT: Weakness and diffuse pain. HISTORY OF PRESENT ILLNESS: A 68-year-old white male with severe COPD and mild coronary artery disease, is in a bad social situation, living in a hotel with his and came in with just general malaise, weakness and poor oral intake. He also complains of some abdominal pain over the last week, but no vomiting, diarrhea, melena, hematochezia or other symptoms. He was at [facility] 2 weeks ago and had a normal cardiac catheterization. Laboratory study showed very high lipase, but he denies alcohol intake. PAST HISTORY: MEDICATIONS: Listed per the chart. ALLERGIES: No allergies noted. SOCIAL HISTORY: He quit smoking just a few months ago. He lives with his , has been in a poor sociological situation. He states he is a nondrinker. FAMILY HISTORY: Unremarkable. REVIEW OF SYSTEMS: GENERAL: Cachexia, weakness and weight loss. OBJECTIVE: ENT: Mild proptosis, otherwise unremarkable. NECK: No masses, nodes or thyroid enlargement. LUNGS: Decreased breath sounds. No wheezing. CARDIOVASCULAR: Regular rate. Heart tones distant. ABDOMEN: Benign, nontender, no masses, megaly or nodes. EXTREMITIES: Poor pedal and radial pulses, but they are present. SKIN: Turgor is markedly decreased and muscle mass decreased. NEUROLOGIC: Physiologic and nonfocal. ASSESSMENT: 1. Abdominal pain with very high lipase certainly at risk for pancreatic cancer. 2. Cachexia and protein calorie malnutrition, progressive, multiple etiologies. 3. Mild coronary artery disease, stable per recent catheterization. 4. Chronic pulmonary obstructive disease. 5. Bad social situation. 6. Dehydration with hypotension. PLAN: DNR per his request. Fluid support. A CT scan of the abdomen and pelvis to assess the high lipase as he is certainly at risk for malignancy. Comfort care measures will be instituted as well. JOHNATHAN CANDELARIA MD DR: CRISTHIAN/sanjeev JOB#: [id number] / [id number]
[2018-04-11 09:57] LABS: BASO % 0 % (0-3); EOS # 0.1 x10^3/uL (0.0-0.7); EOS % 2 % (0-3); HEMATOCRIT 33.7 % (39.0-53.0); HEMOGLOBIN 11.5 g/dL (13.0-17.5); LYMPH # 0.9 x10^3/uL (1.0-4.8); LYMPH % 13 % (24-48); MEAN CORPUSCULAR HEMOGLOBIN 32 pg (25-35); MEAN CORPUSCULAR HGB CONC 34 g/dL (31-37); MEAN CORPUSCULAR VOLUME 94 fL (79-100); MONO # 0.5 x10^3/uL (0.0-1.1); MONO % 7 % (0-9); NEUT # 5.5 x10^3uL (1.8-7.7); NEUT % 78 % (31-73); PLATELET COUNT 295 x10^3/uL (140-400); RED BLOOD COUNT 3.57 x10^6/uL (4.30-5.70); RED CELL DISTRIBUTION WIDTH 15.8 % (11.5-14.5); WHITE BLOOD COUNT 7.1 x10^3/uL (4.0-11.0)
[2018-04-11] MEDS: HYDROcodone/APAP 10/325 1 TAB TABLET PO PRN ×4 (09:59→22:23)
[2018-04-11] MEDS ORDERED: ALBUTEROL SULFATE 2.5 MG/3 ML NEBU. NEB SCH (10:00)
[2018-04-11 10:21] LABS: ALBUMIN 2.8 g/dL (3.4-5.0); CALCIUM 8.3 mg/dL (8.5-10.1); CREATININE 0.9 mg/dL (0.7-1.3); GFR 83.4; POTASSIUM 3.6 mmol/L (3.5-5.1); TOTAL BILIRUBIN 0.2 mg/dL (0.2-1.0); TOTAL PROTEIN 5.5 g/dL (6.4-8.2)
[2018-04-11 11:00] VITALS: BP 116/69
[2018-04-11] MEDS: PANTOPRAZOLE 40 MG TABLET.DR. PO SCH (11:12)
[2018-04-11] MEDS: IV DEXTROSE 5%-LACT RINGERS 1,000 ML IV SCH ×2 (11:12→17:15)
[2018-04-11] MEDS: predniSONE 20 MG TABLET PO SCH (11:12)
[2018-04-11] MEDS: ALPRAZolam 0.5 MG TABLET PO PRN ×2 (11:12→17:00)
[2018-04-11] MEDS ORDERED: HYDROcodone/APAP 10/325 1 TAB TABLET PO SCH (12:00)
[2018-04-11] MEDS ORDERED: NON FORMULARY ITEM (Albuterol Sulfate (Albuterol Sulfate Conc Neb Soln) 1 VIAL) NEB SCH (14:00)
--- NOTE | 2018-04-11 14:16 | RAD ---
CT of the abdomen without contrast, 04/11/2018: HISTORY: Abdominal pain, pancreatitis No oral or IV contrast was administered for this study. This severely limits evaluation of the abdominal structures, particularly in a thin patient such as this with a paucity of intra-abdominal fat. Comparison is made to an exam from 02/23/2017. There are emphysematous changes in the lung bases. There are is peripheral linear atelectasis or scarring in the left base. The unopacified liver is unremarkable. There is a gallstone in the dependent aspect of the gallbladder. The gallbladder is not distended. The pancreas cannot be clearly from unopacified bowel. No abnormal peripancreatic fluid collection is seen. The spleen is of normal size. The unopacified kidneys are unremarkable. There is extensive calcific plaquing of the abdominal aorta and its branches. There is mild dilatation of the infrarenal abdominal aorta which measures 2.7 cm. No adenopathy is seen. The bowel loops are unremarkable. No free fluid or free air is evident in the abdomen or pelvis. Moderate scattered spurs are present in the spine. There is mild loss of height of the L2 vertebral body which is new since 02/23/2017. IMPRESSION: 1. Severely limited exam as described above with poor delineation of the pancreas. 2. Cholelithiasis. 3. Aortic atherosclerosis with slight dilatation of the infrarenal abdominal aorta. 4. Mild L2 vertebral compression deformity, new since 02/23/2017. PQRS Compliance Statement: One or more of the following individualized dose reduction techniques were utilized for this examination: 1. Automated exposure control 2. Adjustment of the mA and/or kV according to patient size 3. Use of iterative reconstruction technique Electronically signed by: Higinio Phillips MD (04/11/2018 2:14 PM) [facility]
[2018-04-11 15:00] VITALS: BP 134/60
[2018-04-11 19:00] VITALS: BP 94/48
[2018-04-11 23:00] VITALS: BP 97/57
[2018-04-12] MEDS: IV DEXTROSE 5%-LACT RINGERS 1,000 ML IV SCH ×3 (00:39→22:54)
[2018-04-12] MEDS: ALPRAZolam 0.5 MG TABLET PO PRN ×3 (01:28→18:05)
[2018-04-12] MEDS: HYDROcodone/APAP 10/325 1 TAB TABLET PO PRN ×5 (02:53→20:38)
[2018-04-12 03:00] VITALS: BP 98/69
[2018-04-12 07:00] VITALS: BP 122/61
--- NOTE | 2018-04-12 09:53 | PDOC ---
Provider Note Provider Note [id number] JOHNATHAN CANDELARIA MD Apr 12, 2018 09:53
[2018-04-12] MEDS: predniSONE 20 MG TABLET PO SCH (10:06)
[2018-04-12] MEDS: PANTOPRAZOLE 40 MG TABLET.DR. PO SCH (10:06)
[2018-04-12 11:00] VITALS: BP 103/56
[2018-04-12] MEDS: IPRATRPIUM/ALBUTEROL 0.5/2.5MG 3 ML NEBU. NEB SCH ×2 (13:55→19:24)
[2018-04-12 15:00] VITALS: BP 102/55
[2018-04-12 19:25] VITALS: BP 113/54
[2018-04-12 23:20] VITALS: BP 108/60
[2018-04-13] MEDS: ALPRAZolam 0.5 MG TABLET PO PRN ×3 (01:02→20:56)
[2018-04-13] MEDS: HYDROcodone/APAP 10/325 1 TAB TABLET PO PRN ×6 (01:02→22:54)
--- NOTE | 2018-04-13 01:59 | PN ---
DATE: 04/12/2018 The patient is afebrile, but BP is still low, but his output has picked up. He is sleeping at this time and in no distress. His lipase is down to 370. The CT showed no discrete pancreatic mass though it is very poorly defined with lack of contrast. Laboratory studies were unremarkable, so we will advance his diet to regular, reduce his IV fluids and continue comfort care measures. 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 JOHNATHAN CANDELARIA MD DR: CRISTHIAN/sanjeev JOB#: [id number] / [id number]
[2018-04-13 03:25] VITALS: BP 116/55
[2018-04-13] MEDS: IPRATRPIUM/ALBUTEROL 0.5/2.5MG 3 ML NEBU. NEB SCH ×3 (07:37→19:47)
[2018-04-13 07:55] VITALS: BP 133/65
[2018-04-13] MEDS: predniSONE 20 MG TABLET PO SCH (08:51)
[2018-04-13] MEDS: PANTOPRAZOLE 40 MG TABLET.DR. PO SCH (08:51)
--- NOTE | 2018-04-13 10:03 | PDOC ---
Provider Note Provider Note [id number] JOHNATHAN CANDELARIA MD Apr 13, 2018 10:03
[2018-04-13 10:42] VITALS: BP 135/66
[2018-04-13 15:35] VITALS: BP 128/70
[2018-04-13 19:00] VITALS: BP 107/73
--- NOTE | 2018-04-13 21:48 | PN ---
DATE: 04/13/2018 The patient continues to have diffuse upper abdominal pain, but he is eating and drinking well, and vital signs are stable, and he looks less dry. Lab normal and lipase was down to normal yesterday. Given the unknown etiology of pancreatitis, we will try an MRI of the abdomen as the CT was done unhelpful given his lack of contrast use. We will also check a CA 27-29 as a tumor marker, though this seems unlikely. Nutritional status very poor. Chronic hydrocodone use on the same dosage and clinical social work aide and placement likely will be a problem, but other laboratory studies do not appear to be remarkable to point any other direction. JOHNATHAN CANDELARIA MD DR: CRISTHIAN/sanjeev JOB#: [id number] / [id number]
[2018-04-13 23:00] VITALS: BP 110/50
[2018-04-14] MEDS: ALPRAZolam 0.5 MG TABLET PO PRN ×3 (02:58→21:29)
[2018-04-14] MEDS: HYDROcodone/APAP 10/325 1 TAB TABLET PO PRN ×5 (02:58→21:29)
[2018-04-14 03:00] VITALS: BP 117/66
--- NOTE | 2018-04-14 06:55 | PDOC ---
Provider Note Provider Note [id number] JOHNATHAN CANDELARIA MD Apr 14, 2018 06:55
[2018-04-14 07:00] VITALS: BP 137/73
[2018-04-14] MEDS: IPRATRPIUM/ALBUTEROL 0.5/2.5MG 3 ML NEBU. NEB SCH ×3 (07:05→19:15)
[2018-04-14] MEDS: PANTOPRAZOLE 40 MG TABLET.DR. PO SCH (08:34)
[2018-04-14] MEDS: predniSONE 20 MG TABLET PO SCH (08:34)
[2018-04-14 11:00] VITALS: BP 154/80
[2018-04-14] MEDS ORDERED: GADOBUTROL 7.5 MMOL/7.5 ML VIAL IV ONE (13:15)
--- NOTE | 2018-04-14 13:45 | PN ---
DATE: 04/14/2018 SUBJECTIVE: Sleeping. OBJECTIVE: VITAL SIGNS: Stable. He has had good intake since his IV fluids were out. LABORATORY DATA: No new labs and the MRI of the abdomen regarding the upper abdominal pain and previously elevated lipase is pending. PLAN: We will stop his O2 and see if that is needed and resume if less than 89%. May need to consider upper endoscopy as an outpatient if source of the pain is not delineated and pain persists, but no sign of GI bleeding at this point. JOHNATHAN CANDELARIA MD DR: CRISTHIAN/sanjeev JOB#: [id number] / [id number]
[2018-04-14 15:00] VITALS: BP 139/77
--- NOTE | 2018-04-14 16:45 | RAD ---
MRI of the abdomen without and with intravenous contrast (pancreatic protocol MRI): History: Abdominal pain for 2 weeks. Pancreatitis. Comparison: CT abdomen pelvis April 11, 2018. Technique: MRI of the abdomen was performed using multiple sequences and planes with attention to the pancreas both prior to and after intravenous gadolinium, 4 mL Gadavist. . Findings: No significant fatty liver disease is seen. No liver mass is appreciated. Spleen is unremarkable as are bilateral adrenal glands. Bilateral kidneys enhance symmetrically. Gallbladder is contracted. The gallstone is seen. Common bile duct has normal caliber at 4 mm. No pancreatic ductal dilatation is appreciated. No convincing pancreatic mass or peripancreatic inflammatory change is identified, although evaluation is limited secondary to motion and suboptimal fat saturation. No pancreatic necrosis is identified. The splenic vein appears patent. There is mild levoconvex scoliosis of the lumbar spine. Impression: 1. No convincing evidence of pancreatitis. 2. Cholelithiasis. No evidence of biliary dilatation. Electronically signed by: Roberto Rossi MD (04/14/2018 4:42 PM) [id number]
[2018-04-14 19:00] VITALS: BP 130/72
[2018-04-14 23:00] VITALS: BP 115/69
[2018-04-15] MEDS: HYDROcodone/APAP 10/325 1 TAB TABLET PO PRN ×6 (01:35→22:02)
[2018-04-15 03:00] VITALS: BP 156/85
[2018-04-15] MEDS: ALPRAZolam 0.5 MG TABLET PO PRN ×3 (05:26→22:02)
[2018-04-15] MEDS: IPRATRPIUM/ALBUTEROL 0.5/2.5MG 3 ML NEBU. NEB SCH ×3 (05:53→20:09)
[2018-04-15 07:00] VITALS: BP 160/76
[2018-04-15] MEDS: PANTOPRAZOLE 40 MG TABLET.DR. PO SCH (07:45)
[2018-04-15] MEDS: predniSONE 20 MG TABLET PO SCH (08:30)
--- NOTE | 2018-04-15 08:44 | PDOC ---
SUBJECTIVE Subjective Notes continued abdominal pain overnight and some increased SOB last night which has improved. OBJECTIVE Objective Reviewed. Vital Signs Vital Signs Date Time Temp Pulse Resp B/P (MAP) Pulse Ox O2 Delivery O2 Flow Rate FiO2 04/15/18 07:00 97.5 67 16 160/76 (104) 99 Nasal Cannula 97.5 04/15/18 06:26 18 97 Nasal Cannula 2.0 04/15/18 05:53 Nasal Cannula 2.0 04/15/18 05:26 18 97 Nasal Cannula 3.0 04/15/18 03:00 98.0 83 22 156/85 (108) 97 Nasal Cannula 3.0 98.0 04/15/18 01:35 18 99 Nasal Cannula 2.0 04/14/18 23:00 98.1 79 18 115/69 (84) 97 Nasal Cannula 98.1 04/14/18 21:29 18 99 Nasal Cannula 3.0 04/14/18 20:00 Nasal Cannula 3.0 04/14/18 19:00 98.3 82 20 130/72 (91) 98 Nasal Cannula 98.3 04/14/18 17:11 99 Nasal Cannula 3.0 04/14/18 15:00 98.6 99 18 139/77 (97) 99 Nasal Cannula 98.6 04/14/18 12:49 99 Nasal Cannula 2.0 04/14/18 11:52 99 Nasal Cannula 2.0 04/14/18 11:00 97.8 78 16 154/80 (104) 93 Nasal Cannula 97.8 I & O Intake and Output 04/15/18 07:00 Intake Total 1080 ml Output Total 1200 ml Balance -120 ml Intake Oral 1080 ml Output Urine Total 1200 ml PHYSICAL EXAM Physical Exam Alert, oriented RRR Decreased thorughout, no wheezes or crackles, nonlabored respirations Abdomen tender in epigastrium No edema in b/l LEs ASSESSMENT/PLAN Assessment/Plan Pancreatitis COPD Cachexia, protein calorie malnutrition, progressive, multiple etiologies. Mild coronary artery disease, stable per recent catheterization. Social issues - currently homeless MRI was negative for pancreatic mass, + gallstone without bile duct dilation. Able to tolerate PO. Plan to dc tomorrow pending assistance from social given multiple social issues including homelessness. 6 min walk today Nutrition Consultation Dietary Evaluation: Recommendations by RD: Increase Calorie Intake, Decrease Calorie Intake Comments: continue with plan of care Expected Outcomes/Goals: PO intake to meet >75% est needs - met, goal ongoing Malnutrition Findings: Food and Nutrition Intake (Mod: <75% est energy req 7days Body Fat Depletion (Non Severe: Mild Depletion Weight Status: Underweight CELINA FREED MD Apr 15, 2018 08:44
[2018-04-15 15:00] VITALS: BP 142/85
[2018-04-15 19:00] VITALS: BP 145/73
[2018-04-15 23:00] VITALS: BP 119/71
[2018-04-16] MEDS: HYDROcodone/APAP 10/325 1 TAB TABLET PO PRN ×3 (02:11→10:48)
[2018-04-16 03:00] VITALS: BP 130/75
[2018-04-16] MEDS: PANTOPRAZOLE 40 MG TABLET.DR. PO SCH (06:20)
[2018-04-16] MEDS: ALPRAZolam 0.5 MG TABLET PO PRN (06:20)
[2018-04-16 07:00] VITALS: BP 167/90
[2018-04-16] MEDS: IPRATRPIUM/ALBUTEROL 0.5/2.5MG 3 ML NEBU. NEB SCH (07:35)
[2018-04-16] MEDS: predniSONE 20 MG TABLET PO SCH (08:32)
--- NOTE | 2018-04-16 10:01 | PDOC3 ---
Discharge Summary Date of Admission: Apr 11, 2018 Date of Discharge: Apr 16, 2018 Admitting Diagnosis comment: Pancreatitis COPD Protein calorie malnutrition FINAL DIAGNOSIS As above Brief Hospital Course Mr. Mcqueen is a 68 old male with severe COPD who presents with abdominal pain , general malaise and poor oral intake. He was found to have very high lipase which improved throughout hospitalization. He has a bad social situation with recently being evicted from his home and having no place to live at this time. He was most recently living in a hotel. Of note he was evaluated at [facility] 2 weeks ago and had a normal cardiac catheterization. Due to his pancreatitis with no obvious source, CT abd/pelvis was performed, but could not be done with contrast due to allergy. This was unrevealing regarding a possible pancreatic mass, so an abdominal MRI was performed which showed no pancreatic mass but did show a gallstone without ductal dilation. He continued to improve through the hospitalization and was able to tolerate regular food and take medications PO. He passed a walking desat study and does not need home oxygen. He continues to have significant dyspnea on exertion due to severe COPD. He has previously been unable to afford inhalers, but he will try to pay for [employer]Port[employer] as it is somewhat cheaper. All home medications were unchanged. He was discharged in stable condition and will likely be staying in a homeless alf for the time being. He will follow up with myself or Dr. Phillips in 1-2 weeks. CONDITION AT DISCHARGE: Stable Discharge Medications Reported Hydrochlorothiazide Tablet (Hydrochlorothiazide) 12.5 Mg Tablet 1 Tab PO DAILY Omeprazole 40 Mg Capsule. 1 Cap PO DAILY Prednisone 20 Mg Tablet 1 Tab PO DAILY Docusate Sodium 100 Mg Capsule 1 Cap PO DAILY Vitamin C (Ascorbic Acid) 500 Mg Tablet 500 Mg PO 1X Hydrocodone-Apap 10-325 (Hydrocodone Bit/Acetaminophen) 1 Each Tablet 1 Tab PO Q4HRS PRN Albuterol Sulfate Conc Neb Soln (Albuterol Sulfate) 2.5 Mg/0.5 Ml Vial.neb 1 Vial NEB TID Losartan Potassium 100 Mg Tablet 100 Mg PO DAILY Alprazolam 0.5 Mg Tablet 1 Tab PO PRN TID PRN Vital Signs Vital Signs Date Time Temp Pulse Resp B/P (MAP) Pulse Ox O2 Delivery O2 Flow Rate FiO2 04/16/18 07:37 92 Nasal Cannula 2.0 04/16/18 07:20 20 04/16/18 07:00 97.7 79 167/90 (701) 97.7 Allergies Allergies Coded Allergies Type Severity Reaction Last Updated Verified Iodinated Contrast- Oral and IV Dye Allergy Intermediate 06/25/17 Yes Disposition/Orders: D/C to Home CELINA FREED MD Apr 16, 2018 10:01
== END 2018-04-16 11:30 | disposition home or self-care (01) | DRG 438 ==
LOC: ER 20:30 → CVICU 21:55 → 5 NORTH 04-11 14:08
PROVIDERS: ADMIT Family Medicine; ATTEND Family Medicine
DX: K85.90 Acute pancreatitis without necrosis or infection, unspecified (principal); R65.11 Systemic inflammatory response syndrome (SIRS) of non-infectious origin with acute organ dysfunction; E46 Unspecified protein-calorie malnutrition; R64 Cachexia; Z68.1 Body mass index [BMI] 19.9 or less, adult; E86.0 Dehydration; I95.9 Hypotension, unspecified; I10 Essential (primary) hypertension; I25.10 Atherosclerotic heart disease of native coronary artery without angina pectoris; I73.00 Raynaud's syndrome without gangrene; J44.9 Chronic obstructive pulmonary disease, unspecified; Z87.891 Personal history of nicotine dependence; Z59.0 Homelessness; Z79.899 Other long term (current) drug therapy; Z89.029 Acquired absence of unspecified finger(s)
CPT/HCPCS: 36415; 71045; 74150; 74183; 80048; 80053; 80076; 83605; 83690; 84145; 84443; 84484; 85025; 86301; 87040; 93005; 94618; 94640; 94760; 96361; 96374; A9585; J1956; J3010; J7030; J7040; J7512; J7620; 97116; 99285-25

== ENCOUNTER 2018-07-12 04:23 | Inpatient (IN) | payer BC ==
[~2018-07-12] VITALS: Ht 167.6 cm; Wt 45.4 kg
[~2018-07-12 04:23] MED LIST changes: +AMOX1TAB11 PO; +BUDE0.5A NEB; -HYDR-2766 PO; +HYDR-2769 PO; +HYDR-3135 PO; -HYDR-963 PO; +IPRA3AMP29 NEB; +LOSA100T14 PO; -LOSA100T7 PO; +MONT10TA9 PO
[2018-07-12] MEDS ORDERED: fentaNYL PF VIAL 100 MCG/2 ML VIAL IM ONE (05:00)
--- NOTE | 2018-07-12 05:06 | PHYS DOC ---
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 Pt reports he got up quickly and was hurrying to restroom when he ran into a table and hit the left side of his chest on the table. He reports he was not having chest pain or worsening shortness of breath prior to or after fall. He reports he did not hit his head or lose consciousness. He complains of left sided chest pain, worse with deep inhalation, and repeatedly asks for "pain medication real quick". He reports he takes 10/325 hydrocodone "several times a day" and last took a dose yesterday (07/11/18) afternoon. He denies drugs, etoh, or current smoking, although does admit he is a former smoker. On reevaluation at bedside, who reports patient regularly "pops pills". She reports she has a hydrocodone prescription and the patient steals pills from her. Per the couple is currently living in a motel with plans to move into a rental later this week. She reports "I don't want him to but I am tired of taking care of him. I shouldn't have him and I am just done". reports patient has progressively been weaker, more confused, and more unsteady and is currently beyond her ability to care for him. (IFTIKHAR SOLIZ DO) Review of Systems Review of Systems Constitutional: Denies fever or chills []] Respiratory: Denies cough; Admits shortness of breath Cardiovascular: Admits chest pain, denies palpitation GI: Denies abdominal pain, nausea,or diarrhea [] : Denies dysuria or hematuria [] Musculoskeletal: Denies back pain; admits L sided rib pain following event. Integument: Denies rash or skin lesions [] Neurologic: Denies headache, focal weakness or sensory changes [] Complete systems were reviewed and found to be within normal limits, except as documented in this note. (IFTIKHAR SOLIZ DO) Current Medications Current Medications Current Medications Medications (Trade) Dose Ordered Sig/Maximo Start Time Stop Time Status Last Admin Dose Admin Albuterol/ Ipratropium (Duoneb) 3 ml 1X ONCE 07/12/18 05:45 07/12/18 05:48 DC 07/12/18 06:33 3 ML Fentanyl Citrate (Fentanyl 2ml Vial) 25 mcg 1X ONCE 07/12/18 08:15 07/12/18 08:16 DC Sodium Chloride 500 ml @ 500 mls/hr 1X ONCE 07/12/18 05:45 07/12/18 06:44 DC 07/12/18 06:54 500 MLS/HR (BRENDAN PRICE Jr. DO) Allergies Allergies Allergies Coded Allergies Type Severity Reaction Last Updated Verified Iodinated Contrast- Oral and IV Dye Allergy Intermediate 06/25/17 Yes (BRENDAN PRICE Jr., DO) Physical Exam Physical Exam Constitutional: cachectic, laying in bed, non-toxic appearance. [] HENT: Normocephalic, atraumatic, bilateral external ears normal, oropharynx dry , no oral exudates, nose normal, edentulous Eyes: EOMI, conjunctiva normal, no discharge. [] Neck: Normal range of motion, no midline tenderness Cardiovascular:Heart rate regular rhythm, no murmur [] Lungs & Thorax: Scattered wheezes throughout. Abdomen: Soft, no tenderness, pelvis stable, nontender. Skin: Warm, dry, minor erythema and ecchymosis L side lower thorax. Back: No tenderness, no lesions. Extremities: No tenderness, no cyanosis, no clubbing, ROM intact, no edema, legs symmetric in length. No external or internal rotation of legs. Neurologic: Alert and oriented X 3, normal motor function, normal sensory function, no focal deficits noted. [] Psychologic: Affect normal, judgement normal, mood normal. [] (IFTIKHAR SOLIZ DO) Current Patient Data Vital Signs Vital Signs Date Time Temp Pulse Resp B/P (MAP) Pulse Ox O2 Delivery O2 Flow Rate FiO2 07/12/18 07:15 16 99 Nasal Cannula 2.0 07/12/18 04:39 96.4 78 131/71 (91) 96.4 (PRICE,BRENDAN D Jr. DO) Lab Values Laboratory Tests Test 07/12/18 06:05 07/12/18 07:00 White Blood Count 8.8 x10^3/uL (4.0-11.0) Red Blood Count 3.46 x10^6/uL (4.30-5.70) L Hemoglobin 10.6 g/dL (13.0-17.5) L Hematocrit 32.4 % (39.0-53.0) L Mean Corpuscular Volume 94 fL (79-100) Mean Corpuscular Hemoglobin 31 pg (25-35) Mean Corpuscular Hemoglobin Concent 33 g/dL (31-37) Red Cell Distribution Width 17.6 % (11.5-14.5) H Platelet Count 335 x10^3/uL (140-400) Neutrophils (%) (Auto) 80 % (31-73) H Lymphocytes (%) (Auto) 11 % (24-48) L Monocytes (%) (Auto) 8 % (0-9) Eosinophils (%) (Auto) 1 % (0-3) Basophils (%) (Auto) 0 % (0-3) Neutrophils # (Auto) 7.1 x10^3uL (1.8-7.7) Lymphocytes # (Auto) 0.9 x10^3/uL (1.0-4.8) L Monocytes # (Auto) 0.7 x10^3/uL (0.0-1.1) Eosinophils # (Auto) 0.1 x10^3/uL (0.0-0.7) Basophils # (Auto) 0.0 x10^3/uL (0.0-0.2) Sodium Level 141 mmol/L (136-145) Potassium Level 4.0 mmol/L (3.5-5.1) Chloride Level 103 mmol/L (98-107) Carbon Dioxide Level 38 mmol/L (21-32) H Anion Gap 0 (6-14) L Blood Urea Nitrogen 20 mg/dL (8-26) Creatinine 0.9 mg/dL (0.7-1.3) Estimated GFR (Cockcroft-Gault) 83.4 BUN/Creatinine Ratio 22 (6-20) H Glucose Level 82 mg/dL (70-99) Lactic Acid Level 1.1 mmol/L (0.4-2.0) Calcium Level 9.4 mg/dL (8.5-10.1) Magnesium Level 2.2 mg/dL (1.8-2.4) Total Bilirubin 0.2 mg/dL (0.2-1.0) Aspartate Amino Transferase (AST) 22 U/L (15-37) Alanine Aminotransferase (ALT) 28 U/L (16-63) Alkaline Phosphatase 69 U/L (46-116) Creatine Kinase 68 U/L (39-308) Creatine Kinase MB (Mass) 5.0 ng/mL (0.0-3.6) H Creatine Kinase MB Relative Index % (0-4) Troponin I Quantitative 0.096 ng/mL (0.000-0.055) Total Protein 5.9 g/dL (6.4-8.2) L Albumin 3.1 g/dL (3.4-5.0) L Albumin/Globulin Ratio 1.1 (1.0-1.7) Urine Collection Type Unknown Urine Color Yellow Urine Clarity Clear Urine pH 6.0 Urine Specific Hardin >=1.030 Urine Protein 100 mg/dL (NEG-TRACE) Urine Glucose (UA) 250 mg/dL (NEG) Urine Ketones (Stick) Negative mg/dL (NEG) Urine Blood Negative (NEG) Urine Nitrite Negative (NEG) Urine Bilirubin Small (NEG) Urine Urobilinogen Dipstick 1.0 mg/dL (0.2 mg/dL) Urine Leukocyte Esterase Negative (NEG) Urine RBC Occ /HPF (0-2) Urine WBC 1-4 /HPF (0-4) Urine Squamous Epithelial Cells Occ /LPF Urine Bacteria Few /HPF (0-FEW) Urine Hyaline Casts Occasional /HPF Urine Mucus Marked /LPF Laboratory Tests 07/12/18 06:05 Laboratory Tests 07/12/18 06:05 (BRENDAN PRICE Jr. DO) EKG EKG @0546; HR 67 BPM: Sinus rhythm; Inverted T waves V5, V6. Nonspecific ST abnormality v4. EKG compared to priors with similar changes present on priors. (IFTIKHAR SOLIZ DO) Radiology/Procedures Radiology/Procedures [] (IFTIKHAR SOLIZ DO) Course & Med Decision Making Course & Med Decision Making Patient is 68 yo male w/ significant PMH who presents following mechanical fall after hurrying to restroom at [facility]. Pt reports he hit his chest on a table and is complaining of L sided chest pain. He reports he did not hit his head, did not lose consciousness, and is repeatedly asking for pain medication d/t pain in ribs on L side. On physical exam he is cachectic, repeatedly asking for pain medication, receiving 3L NC, with vitals WNL. Lungs reveal diffuse scattered wheezing. Thorax has erythema and ecchymosis on lower L side of thorax. Remainder of physical exam unremarkable. Patient received fentanyl however at reassessment requested additional pain medication, despite no pain with elevating head of bed. Patient received breathing treatment with symptomatic improvement. On reevaluation patient's at bedside and communicated her concerns about the patient's progressive weakness, and increased confusion. Additionally, she voiced concern about the patient's excessive use of pain medication and her inability to care for him in his current state. Ordered labs, EKG, CT head, neck, chest, abdomen which are currently pending. Patient signed out to Dr. Price for further evaluation and final disposition. (IFTIKHAR SOLIZ DO) Dragon Disclaimer Dragon Disclaimer This electronic medical record was generated, in whole or in part, using a voice recognition dictation system. (IFTIKHAR SOLIZ DO) Departure Departure Impression: Primary Impression: Weakness Additional Impressions: Chest wall pain Fall Elevated troponin Disposition: ADMITTED INPATIENT Admitting Physician: Jose Luis Thomas Johnson, David (BRENDAN PRICE Jr., DO) Condition: IMPROVED Referrals: JOHNATHAN CANDELARIA MD (PCP) Problem Qualifiers Additional Impressions: Fall Encounter type: initial encounter Qualified Codes: W19.XXXA - Unspecified fall, initial encounter IFTIKHAR SOLIZ DO Jul 12, 2018 05:06 BRENDAN PRICE Jr., DO Jul 12, 2018 08:36
[2018-07-12] MEDS ORDERED: IV NORMAL SALINE 500ML BAG 500 ML IV ONE (05:45)
[2018-07-12] MEDS ORDERED: IPRATRPIUM/ALBUTEROL 0.5/2.5MG 3 ML NEBU. NEB ONE (05:45)
--- NOTE | 2018-07-12 05:51 | RAD ---
Examination: CT head and cervical spine without contrast CT HEAD INDICATION: pain s/p fall COMPARISON: 06/25/2017 Exposure: One or more of the following individualized dose reduction techniques were utilized for this examination: 1. Automated exposure control 2. Adjustment of the mA and/or kV according to patient size 3. Use of iterative reconstruction technique TECHNIQUE: 5 mm contiguous axial images were obtained from the skull base to the vertex in both bone and soft tissue algorithm. FINDINGS: Mild bilateral periventricular white matter hypodensities likely chronic small vessel ischemic disease. No evidence of acute intracranial hemorrhage. No extra-axial fluid collections. No mass effect or midline shift. Ventricular size is appropriate. Basal cisterns are patent. No fractures identified.Hansen-white differentiation is preserved.Globes and orbits are within normal limits. Paranasal sinuses and mastoid air cells are clear. IMPRESSION: 1. No acute intracranial findings. CT CERVICAL SPINE INDICATION: pain s/p fall COMPARISON: None Available. Technique: 2.5 mm contiguous axial images were obtained from the skull base through the cervicothoracic junction in both bone and soft tissue algorithm. Additional sagittal and coronal reconstructions were also performed. FINDINGS: Vertebral body height and alignment are maintained. Cervical lordosis is preserved. The lateral masses of C1 are aligned upon C2. No fractures identified. The bony canal is patent throughout. Moderate to severe intervertebral disc height loss identified. C5-C6, C6-C7 vertebral levels. Small sclerotic density identified at C3 vertebral body probably a small bone island. The paraspinous soft tissues are unremarkable. Visualized intracranial contents are unremarkable. Moderate lung emphysematous changes identified. There is irregular airspace opacity measuring 1.8 cm identified in the right apical lungs could be neoplasm or scarring. IMPRESSION: 1. No acute fracture the cervical spine. Correlate clinically. 2. Multilevel degenerative changes cervical spine. 3.There is irregular airspace opacity measuring 1.8 cm identified in the right apical lungs could be similar to prior exam could be scarring or neoplasm. Follow-up PET CT scan can be considered. Electronically signed by: Michael Olsen MD (07/12/2018 5:46 AM) [facility] [place]
--- NOTE | 2018-07-12 06:03 | RAD ---
Examination: CT chest abdomen pelvis without contrast HISTORY: History of left chest wall pain status post fall COMPARISON: CT chest from 05/06/2018 TECHNIQUE: Axial CT images of the chest abdomen pelvis were performed without contrast. Coronal and sagittal reformats are performed Exposure: One or more of the following individualized dose reduction techniques were utilized for this examination: 1. Automated exposure control 2. Adjustment of the mA and/or kV according to patient size 3. Use of iterative reconstruction technique FINDINGS: Examination limited due to lack of IV contrast and lack of significant intra-abdominal fat. The central airways are patent. Mild cardiomegaly. The ascending aorta measures 3.4 cm in transverse dimension There is a 1.8 cm irregular opacity identified in the right upper lobe of the lung with small nodules in the bilateral upper lobes similar to prior exam. Moderate lung emphysematous changes. There is a subtle cortical irregularity identified in the left anterolateral third, fourth ribs could be motion artifact or nondisplaced fractures. The visualized noncontrasted liver, spleen, adrenals grossly appears unremarkable calcification identified in the right upper quadrant of the abdomen similar to prior exam probably gallstone. The stomach is mildly distended. The small bowel is nondilated. Feces and gas noted in the colon. The appendix is normal. Severe aortic atherosclerosis. The urinary bladder is mildly distended. Severe compression change of T6 vertebral body. There is mild compression change of T8, T9 vertebral body identified. The T8 vertebral body compression is a new compared to prior exam of April 2018. Mild superimposed compression change of L3 vertebral body similar to prior exam. Moderate multilevel degenerative changes thoracic lumbar spine. Thoracic kyphosis identified. IMPRESSION: 1. Mild cortical irregular identified in the anterolateral left third, fourth ribs could be due to motion artifact or fracture. Correlate for point tenderness. 2. A1.8 cm irregular opacity identified in the right upper lobe of the lung with small nodules in the bilateral upper lobes similar to prior exam. Neoplasm with metastasis is not excluded. Recommend PET/CT scan for further evaluation. 3. Moderate bilateral lung emphysematous changes. 4. Cholelithiasis. 5. New mild compression change of T8 vertebral body. Old severe compression change of T6 and mild compression change of T9 and L2 vertebral body similar to prior exam. Electronically signed by: Michael Olsen MD (07/12/2018 5:58 AM) [place] [id number]
[2018-07-12 06:24] LABS: BASO % 0 % (0-3); EOS # 0.1 x10^3/uL (0.0-0.7); EOS % 1 % (0-3); HEMATOCRIT 32.4 % (39.0-53.0); HEMOGLOBIN 10.6 g/dL (13.0-17.5); LYMPH # 0.9 x10^3/uL (1.0-4.8); LYMPH % 11 % (24-48); MEAN CORPUSCULAR HEMOGLOBIN 31 pg (25-35); MEAN CORPUSCULAR HGB CONC 33 g/dL (31-37); MEAN CORPUSCULAR VOLUME 94 fL (79-100); MONO # 0.7 x10^3/uL (0.0-1.1); MONO % 8 % (0-9); NEUT # 7.1 x10^3uL (1.8-7.7); NEUT % 80 % (31-73); PLATELET COUNT 335 x10^3/uL (140-400); RED BLOOD COUNT 3.46 x10^6/uL (4.30-5.70); RED CELL DISTRIBUTION WIDTH 17.6 % (11.5-14.5); WHITE BLOOD COUNT 8.8 x10^3/uL (4.0-11.0)
[2018-07-12 06:31] LABS: CALCIUM 9.4 mg/dL (8.5-10.1); CREATININE 0.9 mg/dL (0.7-1.3); GFR 83.4
[2018-07-12 06:37] LABS: ALBUMIN 3.1 g/dL (3.4-5.0); ALBUMIN/GLOBULIN RATIO 1.1 (1.0-1.7); MAGNESIUM 2.2 mg/dL (1.8-2.4); TOTAL BILIRUBIN 0.2 mg/dL (0.2-1.0); TOTAL PROTEIN 5.9 g/dL (6.4-8.2)
[2018-07-12 06:45] LABS: CREATINE KINASE 68 U/L (39-308)
[2018-07-12] MEDS ORDERED: fentaNYL PF VIAL 100 MCG/2 ML VIAL IV ONE ×2 (07:15→08:15)
[2018-07-12 07:20] LABS: BILIRUBIN,URINE SMALL (NEG); CLARITY,URINE CLEAR; COLOR,URINE YELLOW; NITRITE,URINE NEGATIVE (NEG); PROTEIN,URINE 100 mg/dL (NEG-TRACE)
[2018-07-12 07:31] LABS: BACTERIA,URINE FEW /HPF (0-FEW); HYALINE CASTS, URINE OCCASIONAL /HPF; RBC,URINE OCC /HPF (0-2); SQUAMOUS EPITHELIAL CELL,UR OCC /LPF
[2018-07-12] MEDS ORDERED: ONDANSETRON PF 4 MG/2 ML VIAL. IV PRN (09:30)
[2018-07-12] MEDS: IV NORMAL SALINE 1000ML BAG 1,000 ML IV SCH ×3 (09:47→22:37)
[2018-07-12] MEDS: fentaNYL PF VIAL 100 MCG/2 ML VIAL IV PRN ×6 (10:23→23:02)
[2018-07-12] MEDS: LOSARTAN POTASSIUM 50 MG TABLET. PO SCH (11:30)
[2018-07-12] MEDS: DOCUSATE SODIUM 100 MG CAPSULE. PO SCH (11:30)
[2018-07-12] MEDS: HYDROcodone/APAP 10/325 1 TAB TABLET PO PRN ×3 (11:33→20:20)
[2018-07-12 11:50] VITALS: BP 104/57
--- NOTE | 2018-07-12 12:34 | HP ---
ADMIT DATE: 07/12/2018 HISTORY OF PRESENT ILLNESS: The patient had a fall at the hotel where he and his are living, striking his left chest on a table. He was up trying to get to the bathroom quickly. Severe pain troubles getting back up, brought to the Emergency Room where the patient was found to be profoundly weak, cachectic and had a somewhat elevated troponin at 0.096 as well as findings on CT scanning chest, abdomen and pelvis of mild cortical irregularity identified in the anterolateral left 3rd and 4th ribs, although his pain is lower than this that could be felt due to motion artifact or fracture, had a 1.8 cm irregular opacity right upper lobe of the lung with small nodules in bilateral upper lobes similar to prior exam, emphysema, cholelithiasis, new compression fracture of T8 vertebral body with old severe compression change at T6 and mild compression changes T9, L2, similar to prior exams. Scanning of the head and cervical spine showed irregular changes, but no fractures or other abnormalities noted in this region. He thus was admitted to the hospital. PAST MEDICAL HISTORY: Remarkable for Raynaud's, scleroderma, COPD, DVT, hypertension. PAST SURGICAL HISTORY: Remarkable for heart cath as well as left hand fifth finger amputation. SOCIAL HISTORY: He is an ongoing smoker, nondrinker, does not use drugs. Lives with his . FAMILY HISTORY: Noncontributory. REVIEW OF SYSTEMS: CARDIORESPIRATORY: Remarkable for chest pain on the left side and just a generalized feeling of weakness. He has shortness of breath, but he feels like this is about where he normally lives. GASTROINTESTINAL AND GENITOURINARY: He denies any abdominal pain, nausea, vomiting, diarrhea, dysuria or hematuria. DERMATOLOGIC: Denies any significant rash, skin lesions, changes in the same. NEUROLOGIC: Denies any weakness, sensory changes, headache, etc. PHYSICAL EXAMINATION: GENERAL: He is a cachectic appearing white male, no acute distress, lying still. VITAL SIGNS: Stable. He is afebrile. HEAD, EYES, EARS, NOSE, AND THROAT: Unremarkable. NECK: Supple without bruit or thyromegaly. CHEST: Reveals decreased breath sounds bilaterally with scattered wheezes throughout. HEART: Regular rate and rhythm without S3, S4 or murmur. He does have left anterolateral chest wall tenderness on the lower chest wall as well as some ecchymosis beginning there. ABDOMEN: Soft, nontender without hepatosplenomegaly or masses. EXTREMITIES: Without cyanosis, clubbing or edema. NEUROLOGIC: Intact. IMPRESSION: 1. Fall with profound weakness, cachexia, inability to do self-care. 2. Chest wall pain. 3. Mildly elevated troponin. 4. Right upper lobe nodule concerning for lung cancer. 5. Severe chronic obstructive pulmonary disease. PLAN: The patient has been admitted. Therapy will be asked to evaluate the patient. Cardiology will be consulted for the elevated troponin. The patient will be monitored, managed and treated appropriately. FRANKLYN PURDY MD DR: DEBBIE/sanjeev JOB#: [id number] / [id number] JOHNATHAN Giordano MD
[2018-07-12] MEDS: IPRATRPIUM/ALBUTEROL 0.5/2.5MG 3 ML NEBU. NEB SCH ×3 (13:15→19:53)
[2018-07-12] MEDS: BUDESONIDE 0.5 MG/2 ML NEBU. NEB SCH ×2 (13:16→19:53)
[2018-07-12] MEDS: PANTOPRAZOLE 40 MG TABLET.DR. PO SCH (14:29)
[2018-07-12] MEDS: hydroCHLOROthiazide 12.5 MG CAPSULE PO SCH (14:30)
[2018-07-12] MEDS: ASCORBIC ACID 500 MG TABLET PO SCH (14:30)
[2018-07-12] MEDS: ALPRAZolam 0.5 MG TABLET PO PRN ×2 (14:30→20:20)
[2018-07-12 15:47] VITALS: BP 105/47
[2018-07-12 19:30] VITALS: BP 123/75
[2018-07-12] MEDS: MONTELUKAST SODIUM 10 MG TABLET. PO SCH (20:20)
[2018-07-12 23:40] VITALS: BP 113/59
[2018-07-13] MEDS: HYDROcodone/APAP 10/325 1 TAB TABLET PO PRN ×5 (00:53→19:48)
[2018-07-13] MEDS: IV NORMAL SALINE 1000ML BAG 1,000 ML IV SCH (01:39)
[2018-07-13 03:45] VITALS: BP 98/55
[2018-07-13] MEDS: fentaNYL PF VIAL 100 MCG/2 ML VIAL IV PRN ×2 (04:15→08:35)
[2018-07-13 05:09] LABS: BASO % 1 % (0-3); EOS # 0.1 x10^3/uL (0.0-0.7); EOS % 1 % (0-3); HEMATOCRIT 31.1 % (39.0-53.0); LYMPH % 13 % (24-48); MEAN CORPUSCULAR HEMOGLOBIN 30 pg (25-35); MEAN CORPUSCULAR HGB CONC 32 g/dL (31-37); MEAN CORPUSCULAR VOLUME 94 fL (79-100); MONO # 0.7 x10^3/uL (0.0-1.1); MONO % 9 % (0-9); NEUT # 6.1 x10^3uL (1.8-7.7); NEUT % 77 % (31-73); PLATELET COUNT 276 x10^3/uL (140-400); RED CELL DISTRIBUTION WIDTH 17.5 % (11.5-14.5); WHITE BLOOD COUNT 7.9 x10^3/uL (4.0-11.0)
[2018-07-13 05:28] LABS: CALCIUM 8.2 mg/dL (8.5-10.1); CREATININE 0.8 mg/dL (0.7-1.3); GFR 95.6; POTASSIUM 3.5 mmol/L (3.5-5.1)
[2018-07-13] MEDS: ALPRAZolam 0.5 MG TABLET PO PRN ×3 (06:31→20:42)
[2018-07-13 07:00] VITALS: BP 134/65
[2018-07-13] MEDS: BUDESONIDE 0.5 MG/2 ML NEBU. NEB SCH ×2 (07:02→20:45)
[2018-07-13] MEDS: IPRATRPIUM/ALBUTEROL 0.5/2.5MG 3 ML NEBU. NEB SCH ×4 (07:02→20:45)
[2018-07-13] MEDS: hydroCHLOROthiazide 12.5 MG CAPSULE PO SCH (08:34)
[2018-07-13] MEDS: DOCUSATE SODIUM 100 MG CAPSULE. PO SCH ×2 (08:34→09:00)
[2018-07-13] MEDS: ASCORBIC ACID 500 MG TABLET PO SCH (08:34)
[2018-07-13] MEDS: PANTOPRAZOLE 40 MG TABLET.DR. PO SCH (08:34)
[2018-07-13] MEDS: LOSARTAN POTASSIUM 50 MG TABLET. PO SCH (08:35)
--- NOTE | 2018-07-13 10:28 | EKG ---
[facility] [address] [place] [address] Test Date: 2018-07-12 Test Time: 05:46:57 Pat Name: MANOLO PARKER Department: Room: [facility] Gender: M Bpm Solution Architect: : [id number] Requested By: IFTIKHAR SOLIZ Order Number: [id number] Reading MD: Arun Kevin Measurements Intervals [place] Rate: 67 P: 74 [place]: 132 QRS: 78 QRSD: 82 T: -170 QT: 390 QTc: 414 Interpretive Statements SINUS RHYTHM LEFT ATRIAL ABNORMALITY T ABNORMALITY IN ANTERIOR LEADS LATERAL LEADS NON SPECIFIC ST-T ABNORMALITY (ELEVATION) ABNORMAL ECG Electronically Signed On 07-17-2018 9:41:46 SUPERVISOR IN CIRCUIT TESTING by Arun Kevin
[2018-07-13 11:00] VITALS: BP 116/72
[2018-07-13] MEDS: METOPROLOL TART IMMED RELEASE 25 MG TABLET. PO SCH ×2 (13:40→20:42)
[2018-07-13 15:00] VITALS: BP 110/54
--- NOTE | 2018-07-13 17:23 | PDOC2 ---
CONSULT Date of Consult Date of Consult DATE: 07/13/18 TIME: 17:14 Reason for Consult Reason for Consult: Elevated troponin. Referring Physician Referring Physician: Dr. Thomas Identification/Chief Complaint Chief Complaint Generalized weakness and right sided chest pain after a mechanical fall Source Source: Chart review, Patient History of Present Illness Reason for Visit: The patient is a 68-year-old male who has had progressive weakness over the past several weeks. He had a mechanical fall at home striking the left side of his chest on a table. He was then evaluated in the emergency room. Examination was consistent with pleuritic pain that was reproducible. EKG showed no acute ischemic changes. The patient's troponin minimally elevated at 0.096 with no acute ischemic EKG changes. He was admitted for weakness and confusion. CT scan of the head showed no acute changes. CT scan of the chest showed a 1.8 cm irregularly opacified right upper lung nodule. Cardiac history is significant for hypertension. Catheterization on [id number] showed no significant coronary artery disease. Echocardiogram on [id number] showed an ejection fraction of 75%, no significant valve disease and a pulmonary artery pressure greater than 70 mmHg. Patient is resting fairly comfortably in bed this morning. Past Medical History Cardiovascular: HTN, Other (mild nonsignificant coronary disease on catheterization in 2016) Pulmonary: COPD GI: GERD Heme/Onc: No pertinent hx, Other Hepatobiliary: No pertinent hx Psych: Anxiety Musculoskeletal: Osteoarthritis, Other Rheumatologic: Other Infectious disease: No pertinent hx Renal/: No pertinent hx Endocrine: No pertinent hx Past Surgical History Past Surgical History: Other (heart catheterization as above) Family History Family History: No Significant, Other Social History No ALCOHOL: none Drugs: None, Other (probable use of hydrocodone) Lives: Homeless Current Problem List Problem List Problems Medical Problems: (1) Chest wall pain Status: Acute (2) Elevated troponin Status: Acute (3) Fall Status: Acute (4) Weakness Status: Acute Current Medications Current Medications Current Medications Fentanyl Citrate (Fentanyl 2ml Vial) 50 mcg 1X ONCE IM Last administered on at 05:00; Start 07/12/18 at 05:00; Stop 07/12/18 at 05:01; Status DC Albuterol/ Ipratropium (Duoneb) 3 ml 1X ONCE NEB Last administered on at 06:33; Start 07/12/18 at 05:45; Stop 07/12/18 at 05:48; Status DC Sodium Chloride 500 ml @ 500 mls/hr 1X ONCE IV Last administered on at 06:54; Start 07/12/18 at 05:45; Stop 07/12/18 at 06:44; Status DC Fentanyl Citrate (Fentanyl 2ml Vial) 50 mcg 1X ONCE IV Last administered on at 07:15; Start 07/12/18 at 07:15; Stop 07/12/18 at 07:16; Status DC Fentanyl Citrate (Fentanyl 2ml Vial) 25 mcg 1X ONCE IV Last administered on at 09:45; Start 07/12/18 at 08:15; Stop 07/12/18 at 08:16; Status DC Ondansetron HCl (Zofran) 4 mg PRN Q8HRS PRN IV NAUSEA/VOMITING; Start 07/12/18 at 09:30; Stop 07/13/18 at 09:29; Status DC Fentanyl Citrate (Fentanyl 2ml Vial) 25 mcg PRN Q1HR PRN IV PAIN Last administered on 07/13/18at 08:35; Start 07/12/18 at 09:30; Stop 07/13/18 at 09:29 ; Status DC Sodium Chloride 1,000 ml @ 150 mls/hr Q6H40M IV Last administered on at 01:39; Start 07/12/18 at 09:17; Stop 07/13/18 at 09:16; Status DC Alprazolam (Xanax) 0.5 mg PRN TID PRN PO ANXIETY / AGITATION Last administered on 07/13/18at 14:31; Start 07/12/18 at 11:15 Ascorbic Acid (Vitamin C) 500 mg DAILY PO Last administered on 07/13/18at 08:34 ; Start 07/12/18 at 11:30 Budesonide (Pulmicort) 0.5 mg RTBID NEB Last administered on 07/13/18at 07:02; Start 07/12/18 at 11:30 Docusate Sodium (Colace) 100 mg DAILY PO ; Start 07/12/18 at 11:30 Acetaminophen/ Hydrocodone Bitart (Lortab 10/325) 1 tab PRN Q4HRS PRN PO PAIN Last administered on 07/13/18at 15:46; Start 07/12/18 at 11:15 Albuterol/ Ipratropium (Duoneb) 3 ml RTQID NEB Last administered on 07/13/18at 15:04; Start 07/12/18 at 12:00 Hydrochlorothiazide (Microzide) 12.5 mg DAILY PO Last administered on at 08:34; Start 07/12/18 at 11:30 Losartan Potassium (Cozaar) 100 mg DAILY PO ; Start 07/12/18 at 11:30 Montelukast Sodium (Singulair) 10 mg QHS PO Last administered on 07/12/18at 20: 20; Start 07/12/18 at 21:00 Pantoprazole Sodium (Protonix) 40 mg DAILYAC PO Last administered on 07/13/18at 08:34; Start 07/12/18 at 11:30 Metoprolol Tartrate (Lopressor) 12.5 mg BID PO Last administered on 07/13/18at 13:40; Start 07/13/18 at 14:00 Active Scripts Active Montelukast Sodium Tablet (Montelukast Sodium) 10 Mg Tablet 10 Mg PO QHS 30 Days Budesonide 0.5 Mg/2 Ml Ampul.neb 0.5 Mg NEB RTBID 30 Days Duoneb 0.5-3(2.5) Mg/3 Ml (Albuterol/Ipratropium) 3 Ml Ampul.neb 3 Ml NEB RTQID 30 Days Amox Tr-K Clv 875-125 Mg Tab (Amoxicillin/Potassium Clav) 1 Each Tablet 1 Tab PO BID 7 Days Reported Hydrochlorothiazide Tablet (Hydrochlorothiazide) 12.5 Mg Tablet 1 Tab PO DAILY Omeprazole 40 Mg Capsule.dr 1 Cap PO DAILY Prednisone 20 Mg Tablet 1 Tab PO DAILY Docusate Sodium 100 Mg Capsule 1 Cap PO DAILY Vitamin C (Ascorbic Acid) 500 Mg Tablet 500 Mg PO 1X Hydrocodone-Apap 10-325 (Hydrocodone Bit/Acetaminophen) 1 Each Tablet 1 Tab PO Q4HRS PRN Losartan Potassium 100 Mg Tablet 100 Mg PO DAILY Alprazolam 0.5 Mg Tablet 1 Tab PO PRN TID PRN Allergies Allergies: Coded Allergies: Iodinated Contrast- Oral and IV Dye (Verified Allergy, Intermediate, ) ROS General: YES: Fatigue, Malaise Respiratory: YES: SOB with excertion Cardiovascular: yes Other (pleuritic chest pain) Physical Exam General: mild distress HEENT: Atraumatic Lungs: Other (decreased breath sounds) Heart: Regular rate Abdomen: Normal bowel sounds Vitals VITALS Vital Signs Date Time Temp Pulse Resp B/P (MAP) Pulse Ox O2 Delivery O2 Flow Rate FiO2 07/13/18 16:54 Room Air 07/13/18 15:46 98 3.0 07/13/18 15:00 100.4 106 20 110/54 (72) 100.4 Labs Labs Laboratory Tests Test 07/12/18 06:05 07/12/18 07:00 07/12/18 12:25 07/12/18 15:20 White Blood Count 8.8 x10^3/uL (4.0-11.0) Red Blood Count 3.46 x10^6/uL (4.30-5.70) Hemoglobin 10.6 g/dL (13.0-17.5) Hematocrit 32.4 % (39.0-53.0) Mean Corpuscular Volume 94 fL (79-100) Mean Corpuscular Hemoglobin 31 pg (25-35) Mean Corpuscular Hemoglobin Concent 33 g/dL (31-37) Red Cell Distribution Width 17.6 % (11.5-14.5) Platelet Count 335 x10^3/uL (140-400) Neutrophils (%) (Auto) 80 % (31-73) Lymphocytes (%) (Auto) 11 % (24-48) Monocytes (%) (Auto) 8 % (0-9) Eosinophils (%) (Auto) 1 % (0-3) Basophils (%) (Auto) 0 % (0-3) Neutrophils # (Auto) 7.1 x10^3uL (1.8-7.7) Lymphocytes # (Auto) 0.9 x10^3/uL (1.0-4.8) Monocytes # (Auto) 0.7 x10^3/uL (0.0-1.1) Eosinophils # (Auto) 0.1 x10^3/uL (0.0-0.7) Basophils # (Auto) 0.0 x10^3/uL (0.0-0.2) Sodium Level 141 mmol/L (136-145) Potassium Level 4.0 mmol/L (3.5-5.1) Chloride Level 103 mmol/L (98-107) Carbon Dioxide Level 38 mmol/L (21-32) Anion Gap 0 (6-14) Blood Urea Nitrogen 20 mg/dL (8-26) Creatinine 0.9 mg/dL (0.7-1.3) Estimated GFR (Cockcroft-Gault) 83.4 BUN/Creatinine Ratio 22 (6-20) Glucose Level 82 mg/dL (70-99) Lactic Acid Level 1.1 mmol/L (0.4-2.0) Calcium Level 9.4 mg/dL (8.5-10.1) Magnesium Level 2.2 mg/dL (1.8-2.4) Total Bilirubin 0.2 mg/dL (0.2-1.0) Aspartate Amino Transf (AST/SGOT) 22 U/L (15-37) Alanine Aminotransferase (ALT/SGPT) 28 U/L (16-63) Alkaline Phosphatase 69 U/L (46-116) Creatine Kinase 68 U/L (39-308) Creatine Kinase MB (Mass) 5.0 ng/mL (0.0-3.6) Creatine Kinase MB Relative Index % (0-4) Troponin I Quantitative 0.096 ng/mL (0.000-0.055) 0.071 ng/mL (0.000-0.055) 0.079 ng/mL (0.000-0.055) Total Protein 5.9 g/dL (6.4-8.2) Albumin 3.1 g/dL (3.4-5.0) Albumin/Globulin Ratio 1.1 (1.0-1.7) Urine Collection Type Unknown Urine Color Yellow Urine Clarity Clear Urine pH 6.0 Urine Specific [place] >=1.030 Urine Protein 100 mg/dL (NEG-TRACE) Urine Glucose (UA) 250 mg/dL (NEG) Urine Ketones (Stick) Negative mg/dL (NEG) Urine Blood Negative (NEG) Urine Nitrite Negative (NEG) Urine Bilirubin Small (NEG) Urine Urobilinogen Dipstick 1.0 mg/dL (0.2 mg/dL) Urine Leukocyte Esterase Negative (NEG) Urine RBC Occ /HPF (0-2) Urine WBC 1-4 /HPF (0-4) Urine Squamous Epithelial Cells Occ /LPF Urine Bacteria Few /HPF (0-FEW) Urine Hyaline Casts Occasional /HPF Urine Mucus Marked /LPF Test 07/13/18 04:10 White Blood Count 7.9 x10^3/uL (4.0-11.0) Red Blood Count 3.30 x10^6/uL (4.30-5.70) Hemoglobin 10.0 g/dL (13.0-17.5) Hematocrit 31.1 % (39.0-53.0) Mean Corpuscular Volume 94 fL (79-100) Mean Corpuscular Hemoglobin 30 pg (25-35) Mean Corpuscular Hemoglobin Concent 32 g/dL (31-37) Red Cell Distribution Width 17.5 % (11.5-14.5) Platelet Count 276 x10^3/uL (140-400) Neutrophils (%) (Auto) 77 % (31-73) Lymphocytes (%) (Auto) 13 % (24-48) Monocytes (%) (Auto) 9 % (0-9) Eosinophils (%) (Auto) 1 % (0-3) Basophils (%) (Auto) 1 % (0-3) Neutrophils # (Auto) 6.1 x10^3uL (1.8-7.7) Lymphocytes # (Auto) 1.0 x10^3/uL (1.0-4.8) Monocytes # (Auto) 0.7 x10^3/uL (0.0-1.1) Eosinophils # (Auto) 0.1 x10^3/uL (0.0-0.7) Basophils # (Auto) 0.0 x10^3/uL (0.0-0.2) Sodium Level 144 mmol/L (136-145) Potassium Level 3.5 mmol/L (3.5-5.1) Chloride Level 107 mmol/L (98-107) Carbon Dioxide Level 36 mmol/L (21-32) Anion Gap 1 (6-14) Blood Urea Nitrogen 12 mg/dL (8-26) Creatinine 0.8 mg/dL (0.7-1.3) Estimated GFR (Cockcroft-Gault) 95.6 Glucose Level 98 mg/dL (70-99) Calcium Level 8.2 mg/dL (8.5-10.1) Laboratory Tests Test 07/13/18 04:10 White Blood Count 7.9 x10^3/uL (4.0-11.0) Red Blood Count 3.30 x10^6/uL (4.30-5.70) Hemoglobin 10.0 g/dL (13.0-17.5) Hematocrit 31.1 % (39.0-53.0) Mean Corpuscular Volume 94 fL (79-100) Mean Corpuscular Hemoglobin 30 pg (25-35) Mean Corpuscular Hemoglobin Concent 32 g/dL (31-37) Red Cell Distribution Width 17.5 % (11.5-14.5) Platelet Count 276 x10^3/uL (140-400) Neutrophils (%) (Auto) 77 % (31-73) Lymphocytes (%) (Auto) 13 % (24-48) Monocytes (%) (Auto) 9 % (0-9) Eosinophils (%) (Auto) 1 % (0-3) Basophils (%) (Auto) 1 % (0-3) Neutrophils # (Auto) 6.1 x10^3uL (1.8-7.7) Lymphocytes # (Auto) 1.0 x10^3/uL (1.0-4.8) Monocytes # (Auto) 0.7 x10^3/uL (0.0-1.1) Eosinophils # (Auto) 0.1 x10^3/uL (0.0-0.7) Basophils # (Auto) 0.0 x10^3/uL (0.0-0.2) Sodium Level 144 mmol/L (136-145) Potassium Level 3.5 mmol/L (3.5-5.1) Chloride Level 107 mmol/L (98-107) Carbon Dioxide Level 36 mmol/L (21-32) Anion Gap 1 (6-14) Blood Urea Nitrogen 12 mg/dL (8-26) Creatinine 0.8 mg/dL (0.7-1.3) Estimated GFR (Cockcroft-Gault) 95.6 Glucose Level 98 mg/dL (70-99) Calcium Level 8.2 mg/dL (8.5-10.1) Images Images CT scan of the head shows no acute changes. CT scan of the chest shows a 1.8 cm irregularly opacified right upper lung nodule Assessment/Plan Assessment/Plan 1. Pleuritic chest pain secondary to a traumatic fall striking a table. No acute ischemic EKG changes. Borderline troponin at 0.096. Cardiac catheterization in April 2016 with no significant coronary disease. At this time we'll continue medical treatment. 2. Weakness and confusion. Workup in progress and slowly improving. 3. Hypertension. Blood pressure under better control. Medicine being adjusted as needed. 4. COPD. Pulmonary treatments as above. 5. Right upper lobe lung nodule on CT scanning. Thank you for allowing us to participate in the care of your patient. MILEY BEEBE MD Jul 13, 2018 17:23
[2018-07-13 19:35] VITALS: BP 115/68
[2018-07-13] MEDS: MONTELUKAST SODIUM 10 MG TABLET. PO SCH (20:42)
--- NOTE | 2018-07-13 22:43 | PN ---
DATE: 07/13/2018 LOCATION: He is in room 662. SUBJECTIVE: The patient is awake and alert, complaining bitterly of left-sided chest pain with difficulties moving even around the bed or doing anything for himself. He is also complaining of social issues with them living in a hotel, scheduled to move to a low income housing on Saturday or Saturday and nobody to help him do that. I will ask psychiatric social worker supervisor if there is any help regarding the same. OBJECTIVE: VITAL SIGNS: Stable. He is afebrile. CHEST: Reveals decreased breath sounds, clear. HEART: Has been somewhat tachycardic at times per nursing. When he moves around, it bumps up in the 120s or so. Currently, heart rate is regular without S3, S4 or murmur. ABDOMEN: Soft, nontender, without hepatosplenomegaly or masses. Chest wall tenderness on the left is quite exquisite. He is asking about rib fractures I told him that he is tender down over 7th, 8th and 9th rib area as they did not see any fractures on CT scanning. Therapy is ordered. IMPRESSION: 1. Fall with chest wall pain, difficulty doing any sort of self-care. 2. Weakness. 3. Right upper lobe nodule on CT scanning, concerning for lung cancer. 4. Severe chronic obstructive pulmonary disease. 5. Elevated troponin with cardiology opinion pending. PLAN: Continue present including therapy. We will ask psychiatric social worker supervisor for help regarding all the social issues associated with this poor individual and otherwise same. FRANKLYN PURDY MD DR: DEBBIE/sanjeev JOB#: [id number] / [id number]
[2018-07-13 23:19] VITALS: BP 123/48
[2018-07-14] MEDS: HYDROcodone/APAP 10/325 1 TAB TABLET PO PRN ×6 (00:55→22:55)
[2018-07-14 03:54] VITALS: BP 150/66
[2018-07-14 07:34] VITALS: BP 138/81
[2018-07-14] MEDS: IPRATRPIUM/ALBUTEROL 0.5/2.5MG 3 ML NEBU. NEB SCH ×4 (07:52→20:22)
[2018-07-14] MEDS: BUDESONIDE 0.5 MG/2 ML NEBU. NEB SCH ×2 (07:52→20:23)
--- NOTE | 2018-07-14 07:53 | PDOC ---
Provider Note Provider Note vss, no dyspnea- L chest tender re injuries- is a dnr per choice, add lidoderm, po opioids in palce - dc when place available JOHNATHAN CANDELARIA MD Jul 14, 2018 07:53
[2018-07-14] MEDS: DOCUSATE SODIUM 100 MG CAPSULE. PO SCH (09:00)
[2018-07-14] MEDS: LIDOCAINE (700MG/PATCH) PATCH. TD SCH (09:31)
[2018-07-14] MEDS: LOSARTAN POTASSIUM 50 MG TABLET. PO SCH (09:33)
[2018-07-14] MEDS: METOPROLOL TART IMMED RELEASE 25 MG TABLET. PO SCH ×2 (09:33→21:00)
[2018-07-14] MEDS: hydroCHLOROthiazide 12.5 MG CAPSULE PO SCH (09:34)
[2018-07-14] MEDS: ASCORBIC ACID 500 MG TABLET PO SCH (09:34)
[2018-07-14] MEDS: PANTOPRAZOLE 40 MG TABLET.DR. PO SCH (09:34)
[2018-07-14] MEDS: predniSONE 20 MG TABLET PO SCH (09:34)
[2018-07-14] MEDS: ALPRAZolam 0.5 MG TABLET PO PRN ×3 (09:38→22:55)
[2018-07-14 11:25] VITALS: BP 114/67
--- NOTE | 2018-07-14 13:55 | PDOC ---
CARDIO Progress Notes Date and Time Date of Service 07/14/18 Time of Evaluation 1315 Subjective Subjective: No Chest Pain, No shortness of breath, Other (c/o left side pain) Vitals Vitals Vital Signs Date Time Temp Pulse Resp B/P (MAP) Pulse Ox O2 Delivery O2 Flow Rate FiO2 07/14/18 13:44 91 Nasal Cannula 3.0 07/14/18 11:25 98.2 63 18 114/67 (83) 98.2 Weight Weight [ ] Input and Output Intake and Output Intake and Output 07/14/18 07:01 Intake Total 1620 ml Output Total 750 ml Balance 870 ml Intake Oral 1620 ml Output Urine Total 750 ml Physical Exam HEENT: Neck Supple W Full Motion Chest: Symmetric LUNGS: Clear to Auscultation Heart: S1S2, RRR (SR/ST) Abdomen: Soft N/T Extremities: No Edema Neurology: alert, oriented Assessment Assessment 1. Mechanical fall, no LOC 2. Mild troponin elevation; peak 0.096. Type II, demand ischemia. EKG without ischemic changes. Cath 04/2016 without obstructive disease. Recent echocardiogram with normal LV segmental wall motion. 3. Chest pain, non-cardiac secondary to traumatic fall striking table. Lidoderm patch No acute ischemic EKG changes. 4. Weakness, debility 5. Hypertension; controlled 6. COPD; O2 dependent 7. Abnormal CT chest; RUL lung nodule, concerning for lung cancer. Recommendations Supportive care May discharge from a CV perspective RAVI DURHAM APRN Jul 14, 2018 13:55
[2018-07-14 15:28] VITALS: BP 117/70
--- NOTE | 2018-07-14 16:27 | NUR ---
SW following pt for anticipated dc needs. Chart reviewed and DW RN. Pt is well known to SW from previous admission. PT/OT recommends SNU and pt is on 02 at this time. Discussed with pt about dc plan and he reports he and his have found a place in [place]. Pt and currently reside at an [facility]. Per Pt, they should be able to move in 'with in couple of days' but are looking into some one to assist them with moving furniture. He reports the department of aging will be paying for their first month. Pt declined SNU evaluation at this time and reported he will discuss with hannah. SW will f/u with pt and tomorrow morning.
[2018-07-14 19:20] VITALS: BP 95/60
[2018-07-14] MEDS: PATCH REMOVAL. MC SCH (21:00)
[2018-07-14] MEDS: MONTELUKAST SODIUM 10 MG TABLET. PO SCH (22:56)
[2018-07-14 23:25] VITALS: BP 94/52
[2018-07-15] MEDS: HYDROcodone/APAP 10/325 1 TAB TABLET PO PRN ×5 (03:15→20:29)
[2018-07-15 03:30] VITALS: BP 103/56
[2018-07-15] MEDS: BUDESONIDE 0.5 MG/2 ML NEBU. NEB SCH ×2 (07:08→19:50)
[2018-07-15] MEDS: IPRATRPIUM/ALBUTEROL 0.5/2.5MG 3 ML NEBU. NEB SCH ×4 (07:08→19:50)
[2018-07-15 07:25] VITALS: BP 134/73
--- NOTE | 2018-07-15 07:41 | DISCH ---
DISCHARGE INSTRUCTIONS Condition on Discharge Condition on Discharge: Stable Activity After Discharge Activity Instructions for Disc: Activity as tolerated Lifting Instructions after Dis: No heavy lifting Exercise Instruction after Dis: Progress as tolerated Driving Instructions after Dis: Do not drive, Other, see below Weight Bearing Status after Di: No restrictions Diet after Discharge Diet after Discharge: Regular Diet Texture: Regular Liquid Texture: No Liquids Swallowing Supervision: None needed Wound Incision Care Wound/Incision Care: No wound care needed Checks after Discharge Checks after discharge: Check blood press - daily, Check your Temp as needed Follow-Up Follow up with: as scheduled Treatment/Equipment after DC Adaptive Equipment Issued: None Discharge Respiratory Equipmen: Oxygen JOHNATHAN CANDELARIA MD Jul 15, 2018 07:41
--- NOTE | 2018-07-15 07:45 | PDOC ---
Provider Note Provider Note [id number] JOHNATHAN CANDELARIA MD Jul 15, 2018 07:45
--- NOTE | 2018-07-15 07:59 | DS ---
DATE OF DISCHARGE: 07/15/2018 HOSPITAL SUMMARY: A 68-year-old white male with COPD, cachexia and multiple chronic illnesses, came in after a fall, with left chest wall pain. Hemoglobin was low at 10.6, which is stable for him. White count was normal. Chemistry profile was unremarkable, and troponin only mildly elevated at 0.09, consistent with demand ischemia. Chest and abdominal CT showed a 1.8 cm irregular opacity in the right upper lobe consistent with previous exams and severe COPD changes. The abdominal CT was unremarkable. He has a compression fracture of T6, which appears to be old and a slight compression of T8, which may be new. There are very subtle cortical changes of the left anterior ribs 3 and 4, possibly related to small nondisplaced fractures. Head and cervical spine CT showed no acute abnormalities. He was given comfort care with lidocaine patches and oral hydrocodone and is stable and feeling better and once he is able to arrange a new home environment, he will be discharged and followed as an outpatient. FINAL DIAGNOSES: 1. Fall with left rib fractures and T8 compression fracture. 2. Right upper lobe nodule suspicious for carcinoma. 3. Advanced chronic obstructive pulmonary disease and cachexia. OPERATIONS, PROCEDURES, COMPLICATIONS: None. CONSULTATIONS: Dr. Evangelista's group. DISPOSITION: Home meds remain the same. He is on chronic hydrocodone therapy. Follow up with me as scheduled, and we will follow the CT findings on the chest, but he is not capable of undergoing aggressive interventions as his life span is limited by his COPD and malnutrition. JOHNATHAN CANDELARIA MD DR: CRISTHIAN/sanjeev JOB#: [id number] / [id number]
[2018-07-15] MEDS: ALPRAZolam 0.5 MG TABLET PO PRN ×2 (08:14→16:22)
[2018-07-15] MEDS: ASCORBIC ACID 500 MG TABLET PO SCH (08:15)
[2018-07-15] MEDS: predniSONE 20 MG TABLET PO SCH (08:15)
[2018-07-15] MEDS: PANTOPRAZOLE 40 MG TABLET.DR. PO SCH (08:16)
[2018-07-15] MEDS: LOSARTAN POTASSIUM 50 MG TABLET. PO SCH (08:16)
[2018-07-15] MEDS: hydroCHLOROthiazide 12.5 MG CAPSULE PO SCH (08:16)
[2018-07-15] MEDS: METOPROLOL TART IMMED RELEASE 25 MG TABLET. PO SCH ×2 (08:16→20:29)
[2018-07-15] MEDS: LIDOCAINE (700MG/PATCH) PATCH. TD SCH (08:17)
[2018-07-15] MEDS: DOCUSATE SODIUM 100 MG CAPSULE. PO SCH ×2 (08:18→09:49)
[2018-07-15 11:18] VITALS: BP 113/63
[2018-07-15 15:33] VITALS: BP 122/68
--- NOTE | 2018-07-15 16:02 | NUR ---
SW following pt. Pt reports he is unable to go today as his is moving things to their new apartment and does not have a place to stay. Pt reports he will have everything set up tomorrow and his can come pick him up tomorrow. SW notified pt he will have to dc home tomorrow. Pt verbalized understanding.
[2018-07-15 19:20] VITALS: BP 107/63
[2018-07-15] MEDS: MONTELUKAST SODIUM 10 MG TABLET. PO SCH (20:28)
[2018-07-15] MEDS: PATCH REMOVAL. MC SCH (20:29)
[2018-07-15 23:20] VITALS: BP 118/71
[2018-07-16] MEDS: HYDROcodone/APAP 10/325 1 TAB TABLET PO PRN ×3 (00:33→08:09)
[2018-07-16] MEDS: ALPRAZolam 0.5 MG TABLET PO PRN ×2 (00:33→08:09)
[2018-07-16 03:20] VITALS: BP 127/69
[2018-07-16 07:15] VITALS: BP 150/75
[2018-07-16] MEDS: BUDESONIDE 0.5 MG/2 ML NEBU. NEB SCH (07:44)
[2018-07-16] MEDS: IPRATRPIUM/ALBUTEROL 0.5/2.5MG 3 ML NEBU. NEB SCH (07:45)
[2018-07-16] MEDS: PANTOPRAZOLE 40 MG TABLET.DR. PO SCH (08:09)
[2018-07-16] MEDS: predniSONE 20 MG TABLET PO SCH (08:09)
[2018-07-16] MEDS: DOCUSATE SODIUM 100 MG CAPSULE. PO SCH (08:09)
[2018-07-16] MEDS: hydroCHLOROthiazide 12.5 MG CAPSULE PO SCH (08:09)
[2018-07-16] MEDS: ASCORBIC ACID 500 MG TABLET PO SCH (08:09)
[2018-07-16] MEDS: LOSARTAN POTASSIUM 50 MG TABLET. PO SCH (08:10)
[2018-07-16] MEDS: METOPROLOL TART IMMED RELEASE 25 MG TABLET. PO SCH (08:10)
[2018-07-16] MEDS: LIDOCAINE (700MG/PATCH) PATCH. TD SCH (08:12)
[2018-07-16 10:41] VITALS: BP 142/82
--- NOTE | 2018-07-16 10:49 | NUR ---
EDDA following pt. EDDA arranged transportation via [facility] at 1115 to address provided by pt. EDDA also phoned and faxed orders for walker to [facility]. Pt is aware if order is approved by insurance Tiffanie will deliver walker to his home. ARNALDO HUSSEIN. Addendum: 07/16/18 at 1159 by GIULIANA BAÑUELOS EDDA notified by Aj from [facility] they had delivered a walker last year to pt's residence and Insurance will not pay this order. ARNALDO pt at bedside and pt claims 'that's not true' and he has been using a walker he borrowed from a friend. EDDA informed him insurance will not pay for this order and pt verbalized understanding. EDDA also attempted to call pt's but voice mail was full. Pt will transport at 1215.
--- NOTE | 2018-07-16 11:45 | NUR ---
Discharge Note: [facility] Discharge instructions and discharge home medications reviewed with Patient and a copy given. All questions have been answered and understanding verbalized. The following instructions and handouts were given: information about failure to thrive and falls. Discontinued lines and drains: IV line in left upper arm removed, catheter tip intact. Patient discharged to home with self care, [facility] transport used for transport, wheelchair used for mobility to discharge facility.
== END 2018-07-16 11:45 | disposition home or self-care (01) | DRG 183 ==
LOC: ER 04:23 → 6 SOUTH 10:27
PROVIDERS: ADMIT Family Medicine; ATTEND Family Medicine
DX: S22.42XA Multiple fractures of ribs, left side, initial encounter for closed fracture (principal); G93.41 Metabolic encephalopathy; R64 Cachexia; I24.8 Other forms of acute ischemic heart disease; Z68.1 Body mass index [BMI] 19.9 or less, adult; M48.54XA Collapsed vertebra, not elsewhere classified, thoracic region, initial encounter for fracture; R07.89 Other chest pain; J44.9 Chronic obstructive pulmonary disease, unspecified; F17.200 Nicotine dependence, unspecified, uncomplicated; F41.9 Anxiety disorder, unspecified; I10 Essential (primary) hypertension; I73.00 Raynaud's syndrome without gangrene; K21.9 Gastro-esophageal reflux disease without esophagitis; M19.90 Unspecified osteoarthritis, unspecified site; M34.9 Systemic sclerosis, unspecified; W22.03XA Walked into furniture, initial encounter; Y92.59 Other trade areas as the place of occurrence of the external cause; Z59.6 Low income; Z59.0 Homelessness; Z99.81 Dependence on supplemental oxygen; Z86.718 Personal history of other venous thrombosis and embolism; Z79.01 Long term (current) use of anticoagulants; Y93.89 Activity, other specified; Y92.89 Other specified places as the place of occurrence of the external cause; Y99.8 Other external cause status
CPT/HCPCS: 36415; 70450; 71250; 72125; 74176; 80048; 80053; 81001; 82553; 83605; 83735; 84484; 85025; 93005; 94640; 94760; 96361; 96372; 96374; 96376; J3010; J7030; J7040; J7512; J7620; J7626; 97116; 97530; 97535; 99285-25